=== PATIENT | female | born 1960 | race Caucasian/White ===

== ENCOUNTER → 2019-11-17 10:49 | Outpatient (BNVA) | payer MEDICARE, MEDICAID, SELFPAY | PROVIDERS: Family Provider Internal Medicine; PCP Internal Medicine; Visit Provider Nurse Practitioner Psychiatric/Mental Health | DX: F31.74 Bipolar disorder, in full remission, most recent episode manic (principal) | CPT/HCPCS: 99213 ==

== ENCOUNTER → 2020-03-14 07:36 | Outpatient (BNVA) | payer MEDICARE, MEDICAID, SELFPAY | PROVIDERS: Family Provider Internal Medicine; PCP Internal Medicine; Visit Provider Nurse Practitioner Psychiatric/Mental Health | DX: F31.74 Bipolar disorder, in full remission, most recent episode manic (principal) | CPT/HCPCS: 99213 ==

== ENCOUNTER → 2020-07-18 07:52 | Outpatient (BNVA) | payer MEDICARE, MEDICAID, SELFPAY | PROVIDERS: Family Provider Internal Medicine; PCP Internal Medicine; Visit Provider Nurse Practitioner Psychiatric/Mental Health | DX: F31.74 Bipolar disorder, in full remission, most recent episode manic (principal) | CPT/HCPCS: 99213 ==

== ENCOUNTER → 2020-11-14 07:41 | Outpatient (BNVA) | payer MEDICARE, MEDICAID, SELFPAY | PROVIDERS: Family Provider Internal Medicine; PCP Internal Medicine; Visit Provider Nurse Practitioner Psychiatric/Mental Health | DX: F31.74 Bipolar disorder, in full remission, most recent episode manic (principal) | CPT/HCPCS: 99213 ==

== ENCOUNTER → 2021-03-20 08:00 | Outpatient (BNVA) | payer MEDICARE, MEDICAID, SELFPAY | PROVIDERS: Family Provider Internal Medicine; PCP Internal Medicine; Visit Provider Nurse Practitioner Psychiatric/Mental Health | DX: F31.74 Bipolar disorder, in full remission, most recent episode manic (principal) | CPT/HCPCS: 99213 ==

== ENCOUNTER → 2021-07-17 07:21 | Outpatient (BNVA) | payer MEDICARE, MEDICAID, SELFPAY | PROVIDERS: Family Provider Internal Medicine; PCP Internal Medicine; Visit Provider Nurse Practitioner Psychiatric/Mental Health | DX: F31.74 Bipolar disorder, in full remission, most recent episode manic (principal) | CPT/HCPCS: 99214 ==

== ENCOUNTER → 2021-11-13 07:34 | Outpatient (BNVA) | payer MEDICARE, MEDICAID, SELFPAY | PROVIDERS: Family Provider Internal Medicine; PCP Internal Medicine; Visit Provider Nurse Practitioner Psychiatric/Mental Health | DX: F31.74 Bipolar disorder, in full remission, most recent episode manic (principal) | CPT/HCPCS: 99214 ==

== ENCOUNTER 2021-12-21 09:56 | Outpatient (CLI) | payer MEDICARE, MEDICAID, SELFPAY ==
--- NOTE | 2021-12-21 10:10 | MM_ITS ---
WS: [id number] SCREENING DIGITAL MAMMOGRAM WITH CAD HISTORY: SCREENING COMPARISON: 03/02/2019 and 03/26/2018 Bilateral CC and MLO views submitted. Computer aided detection analyzed. Breast composition: There are scattered areas of fibroglandular density. Numerous bilateral breast calcifications. There is a new cluster of calcifications with mild increase d soft tissue noted in the lateral LEFT breast near 2:00. Middle depth developing calcifications. MM/[place] [id number] IMPRESSION: BI-RADS: 0-Incomplete: Need additional imaging evaluation FOLLOW UP: Need Additional Imaging LEFT BREAST: Magnification views of suspicious calcification CC and MLO. Zeb Rodriguez
== END 2021-12-21 09:57 | disposition home or self-care (01) ==
PROVIDERS: Family Provider Internal Medicine; PCP Internal Medicine; Visit Provider Internal Medicine
DX: Z12.31 Encounter for screening mammogram for malignant neoplasm of breast (principal)
CPT/HCPCS: 77067

== ENCOUNTER 2021-12-31 11:37 | Outpatient (CLI) | payer MEDICARE, MEDICAID, SELFPAY ==
--- NOTE | 2021-12-31 11:57 | MM_ITS ---
WS: [id number] ADDITIONAL VIEWS LEFT MAMMOGRAM HISTORY: LT BREAST CALCIFICATIONS COMPARISON: 12/21/2021, 03/02/2019 and 08/26/2017 Magnification views LEFT breast in CC, MLO projections and true ML submitted. Small cluster of calcifications in the middle depth upper quadrant of the LEFT breast. These calcific ations are new since 2019. These are very vague and difficult to visualize. There are numerous additi onal calcifications within the LEFT breast which are stable. MM/[id number] IMPRESSION: BI-RADS: 3-Probably Benign FOLLOW UP: 6 Month Follow-up Recommend diagnostic mammogram in 6 months with magnification views of the new development LEFT breast calcifications.
== END 2021-12-31 11:38 | disposition home or self-care (01) ==
LOC: RADSHAW 11:55
PROVIDERS: PCP Internal Medicine; Visit Provider Internal Medicine
DX: R92.1 Mammographic calcification found on diagnostic imaging of breast (principal)
CPT/HCPCS: 77065

== ENCOUNTER → 2022-03-05 07:29 | Outpatient (BNVA) | payer MEDICARE, MEDICAID, SELFPAY | PROVIDERS: PCP Internal Medicine; Visit Provider Nurse Practitioner Psychiatric/Mental Health | DX: F31.74 Bipolar disorder, in full remission, most recent episode manic (principal) | CPT/HCPCS: 99214 ==

== ENCOUNTER → 2022-08-01 10:53 | Outpatient (BNVA) | payer MEDICARE, MEDICAID, SELFPAY | PROVIDERS: PCP Internal Medicine; Visit Provider Specialist | DX: M17.12 Unilateral primary osteoarthritis, left knee (principal) | CPT/HCPCS: 20610 ==

== ENCOUNTER 2022-09-28 17:59 | Emergency (ER) | payer MEDICARE, MEDICAID, SELFPAY ==
[2022-09-28 19:08] VITALS: BMI 44.0
[2022-09-28 19:11] VITALS: BP 148/77; PULSE 77; RESP 18; TEMP 38.7; O2SAT 93
--- NOTE | 2022-09-28 21:23 | XRR_ITS ---
PROCEDURE INFORMATION: Exam: XR Chest Exam date and time: 09/28/2022 11:52 PM Age: 62 years old Clinical indication: Cough and fever; Additional info: Cough fever TECHNIQUE: Imaging protocol: Radiologic exam of the chest. Views: 1 view. COMPARISON: CR XR chest 1V [id number] 02/18/2016 4:04 PM FINDINGS: Lungs: Unremarkable. No consolidation. Pleural spaces: Unremarkable. No pleural effusion. No pneumothorax. Heart/Mediastinum: Unremarkable. No cardiomegaly. Bones/joints: Moderate left primary glenohumeral osteoarthritis. Soft tissues: Examination is limited secondary to body habitus. XR/XR chest 1V portable [id number] IMPRESSION: No acute findings.
[2022-09-28 22:28] LABS: Influenza A by IFA negative (Negative); Influenza B by IFA negative (Negative)
[2022-09-28 22:29] LABS: SARS Covid-2 Antigen positive (Negative)
--- NOTE | 2022-09-28 23:10 | W.ED.FEVER ---
HPI - Fever General: Chief Complaint: Fever Stated Complaint: FEver Time Seen by Provider: 09/28/22 22:39 History of Present Illness: Patient is a 62-year-old female comes to the ED with upper respiratory symptoms. Symptoms started yesterday. She has a productive cough with green sputum, fevers, nasal congestion and drainage, chills and body aches. Denies any chest pain, shortness of breath, nausea or vomiting. Associated symptoms: Reports chills and nasal congestion; Deny abdominal pain, flank pain, chest pain, diarrhea, dysuria, headache(s), nausea or vomiting Review of Systems Const: Reports: fever(s), chills and body aches Eyes: Denies: change in vision or eye discomfort ENMT: Reports: nasal discharge and nasal congestion; Denies: throat pain or odynophagia Card: Denies: chest pain, palpitations, edema, swelling of feet/ankles, dyspnea on exertion or orthopnea Resp: Reports: productive cough and change in phlegm color (Green); Denies: dyspnea or non-productive cough GI: Denies: abdominal pain, nausea, vomiting, diarrhea, constipation or hematochezia : Denies: flank pain, dysuria or hematuria Musc: Denies: neck pain, back pain or extremity swelling Skin/Breast: Denies: rash or new lesions Neuro: Denies: headache(s), numbness in extremities or weakness in extremities PFSH ED PFSH: Medical History Bipolar disorder, in full remission, most recent episode manic Psychiatric care Social History Smoking and tobacco status: former smoker Quit status (tobacco): has quit using tobacco Year quit tobacco: 1984 Second hand smoke exposure: No Smoking risk assessment/counseling performed?: No Physical Exam Const: COMMON NORMALS: no acute distress, patient oriented x3, healthy appearing and alert GENERAL APPEARANCE: cooperative and comfortable HENMT: COMMON NORMALS: normocephalic HEAD & SCALP: normocephalic MOUTH: Normal oral and palatal mucosa present THROAT: posterior oropharynx normal and uvula midline Neck/C-Spine: COMMON NORMALS: supple GENERAL: Yes normal visual inspection Resp: COMMON NORMALS: normal respiratory effort, No retractions, No use of accessory muscles and clear to auscultation bilaterally AUSCULTATION: clear to auscultation bilaterally Cardio: COMMON NORMALS: regular rate, regular rhythm, S1 normal heart sound present, S2 normal heart sound present, No gallops present (Cardio), No clicks present (Cardio), No murmurs present (Cardio) and Peripheral pulses 2+ throughout RATE: regular rate RHYTHM: regular rhythm HEART SOUNDS: S1 normal heart sound present and S2 normal heart sound present PERIPHERAL PULSES: Peripheral pulses 2+ throughout GI: COMMON NORMALS: Normal to inspection, nondistended, normoactive bowel sounds present, Soft to palpation, non-tender and no masses PALPATION: Yes Soft to palpation : COMMON NORMALS: Yes no CVA tenderness BLADDER/KIDNEY EXAM: Yes no CVA tenderness Back/Pelvis: COMMON NORMALS: no CVA tenderness Neuro: COMMON NORMALS: patient oriented x3 SENSORIUM/ORIENTATION: Yes alert GAIT: Yes Normal gait present Skin: GENERAL SKIN EXAM: dry skin Course Vital Signs: Vital signs: Vital Signs Temperature 100.4 F H 09/28/22 23:24 Pulse Rate 71 09/28/22 23:24 Respiratory Rate 20 H 09/28/22 23:24 Blood Pressure 126/85 09/28/22 23:24 Pulse Oximetry 93 09/28/22 23:24 Oxygen Delivery Me thod 09/28/22 23:24 MDM - Fever Medical Decision Making Patient is a 62-year-old female comes to the ED with upper respiratory symptoms. Symptoms started yesterday. She has a productive cough with green sputum, fevers, nasal congestion and drainage, chills and body aches. Denies any chest pain, shortness of breath, nausea or vomiting. Patient has a fever of 101.7 but the rest of her vitals are stable. Lungs are clear to station bilaterally and the rest of exam is benign. Patient appears nontoxic in no acute distress or pain. Chest x-ray shows no acute findings. Influenza negative COVID was positive. He was given a dose of Tylenol here in the ED. I discussed the option of Paxlovid, but pt wanted a course of steroids for treatment. She was diagnosed with COVID-19 and discharged home with a prescription for Medrol Dosepak. Follow-up with PCP in the next week for reevaluation. Return to ED precautions given. Patient understood and agreed with plan Lab Data Radiology Impressions Chest X-Ray 09/28/22 21:23 IMPRESSION: No acute findings. Laboratory Results Influenza Type A Ag negative (Negative) 09/28/22 21:58 Influenza Type B Ag negative (Negative) 09/28/22 21:58 SARS-CoV-2 Ag (Rapid) positive (Negative) 09/28/22 21:58 Discharge Plan Discharge Patient Disposition: Home Clinical Impression: COVID-19 Condition: Stable Prescriptions: New methylprednisolone 4 mg tablets,dose pack See Rx Instructions .ROUTE .COMPLEX Qty: 21 0RF Rx Instructions: orally per package directions No Action levothyroxine [Synthroid] 150 mcg tablet 150 mcg PO DAILY cholecalciferol (vitamin D3) 4,000 unit capsule 4,000 unit PO DAILY atorvastatin 40 mg tablet 40 mg PO DAILY prednisone 20 mg tablet 20 mg PO DAILY 5 Days Qty: 5 0RF ziprasidone HCl [Geodon] 80 mg capsule 80 mg PO BID Qty: 180 2RF Rx Instructions: Take one capsule twice per day with food (meal/snack) trazodone 100 mg tablet 100 mg PO .QHS PRN (Reason: insomnia) Qty: 90 2RF Rx Instructions: Take one tablet at bedtime as needed for sleep Discharge Orders: Discharge ED (Routine); Ordered 09/28/22 Ordered By: Narendra Pang Referrals: Bandar De La Torre DO [Primary Care Provider] - Discharge Diet: Regular Discharge Activity: Increase activity as tolerated Patient Instructions: COVID-19 (Coronavirus Disease 2019) (ED) Activity Restrictions/Additional Instructions: Follow-up with medical provider as directed in the next 5 to 7 days for reevaluation. Take medications as prescribed. Make sure you drink plenty of fluids and stay hydrated. Take [id number] Tylenol or Motrin for fevers. Return to the ER or your medical provider if condition worsens. Please read and understand discharge instructions. Thank you for choosing [facility] for your healthcare needs today. Please realize this is an emergency room and that we are providing you with a medical screening exam and this may not be complete and all inclusive of all the testing and or work up that you may need to determine your ailment or severity of your illness. It is very important that you follow up as instructed or that you return to the Emergency Department should you have concerns or if your condition changes or worsens in any way. Coding Level of Care Code ED Software Qa Manager for Chg Fwd Exam Comprehensive
[2022-09-28 23:24] VITALS: BP 126/85; PULSE 71; RESP 20; TEMP 38; O2SAT 93
[2022-09-28] MEDS: acetaminophen 500 mg Tablet 1000 MG PO (23:25)
[2022-09-28] MEDS: predniSONE 20 mg Tablet 60 MG PO (23:51)
== END 2022-09-28 23:50 | disposition home or self-care (01) ==
PROVIDERS: Emergency Medicine; Emergency Provider Physician Assistant; PCP Internal Medicine
DX: U07.1 COVID-19 (principal); Z87.891 Personal history of nicotine dependence
CPT/HCPCS: 71045; 87426; 87804; 99284; J7512

== ENCOUNTER 2023-01-01 10:01 | Outpatient (CLI) | payer MEDICARE, MEDICAID, SELFPAY ==
--- NOTE | 2023-01-01 10:11 | MM_ITS ---
WS: [id number] DIAGNOSTIC BILATERAL DIGITAL BREAST TOMOSYNTHESIS MAMMOGRAPHY WITH CAD HISTORY: 6MFU CALCS COMPARISON: 12/31/2021, 12/21/2021 and 03/02/2019 TECHNIQUE: Bilateral craniocaudad, mediolateral oblique, and mediolateral views are submitted with to [email or web address] and SM. Magnification views LEFT CC and MLO. Computer aided detection utilized. Breast composition: There are scattered areas of fibroglandular density. Bilateral breast calcificati ons are reidentified. Cluster of calcifications in the LEFT breast for which follow-up was recommende d are now more coarse. These calcifications appear more similar to the remaining scattered calcificat ions throughout the breast. There are no suspicious groups of calcifications. MM/[place] [id number] IMPRESSION: BI-RADS: 2-Benign FOLLOW UP: 1 Year Follow-up
== END 2023-01-01 10:02 | disposition home or self-care (01) ==
LOC: RAD 10:05
PROVIDERS: PCP Internal Medicine; Visit Provider Internal Medicine
DX: R92.1 Mammographic calcification found on diagnostic imaging of breast (principal)
CPT/HCPCS: 77062; G0279

== ENCOUNTER → 2023-01-07 09:46 | Outpatient (BNVA) | payer MEDICARE, MEDICAID, SELFPAY | PROVIDERS: PCP Internal Medicine; Visit Provider Podiatrist Foot & Ankle Surgery | DX: M21.41 Flat foot [pes planus] (acquired), right foot (principal); M21.42 Flat foot [pes planus] (acquired), left foot; M21.611 Bunion of right foot; M21.612 Bunion of left foot; M20.41 Other hammer toe(s) (acquired), right foot; M20.42 Other hammer toe(s) (acquired), left foot; M21.621 Bunionette of right foot; M21.622 Bunionette of left foot; E11.42 Type 2 diabetes mellitus with diabetic polyneuropathy | CPT/HCPCS: 99204 ==

== ENCOUNTER → 2023-01-30 09:27 | Outpatient (BNVA) | payer MEDICARE, MEDICAID, SELFPAY | PROVIDERS: PCP Internal Medicine; Visit Provider Specialist | DX: M17.12 Unilateral primary osteoarthritis, left knee (principal) | CPT/HCPCS: 20610; J7318 ==

== ENCOUNTER → 2023-08-07 09:43 | Outpatient (BNVA) | payer MEDICARE, MEDICAID, SELFPAY | PROVIDERS: PCP Internal Medicine; Visit Provider Specialist | DX: M17.12 Unilateral primary osteoarthritis, left knee (principal) | CPT/HCPCS: 20610; J7325 ==

== ENCOUNTER → 2024-02-20 09:09 | Outpatient (BNVA) | payer MEDICARE, MEDICAID, SELFPAY | PROVIDERS: PCP Internal Medicine; Visit Provider Specialist | DX: M17.12 Unilateral primary osteoarthritis, left knee (principal) | CPT/HCPCS: 20610; J7325 ==

== ENCOUNTER → 2024-09-17 09:26 | Outpatient (BNVA) | payer MEDICARE, MEDICAID, SELFPAY | PROVIDERS: PCP Internal Medicine; Visit Provider Specialist | DX: M17.12 Unilateral primary osteoarthritis, left knee (principal); Z71.89 Other specified counseling | CPT/HCPCS: 20610 ==

== ENCOUNTER 2024-09-23 01:38 | Emergency (ER) | payer MEDICARE, MEDICAID, SELFPAY ==
[2024-09-23 01:45] VITALS: BP 181/108; PULSE 82; RESP 16; TEMP 36.8; O2SAT 95; BMI 44.5
--- NOTE | 2024-09-23 01:47 | XRR_ITS ---
PROCEDURE INFORMATION: Exam: XR Chest Exam date and time: 09/23/2024 1:54 AM Age: 64 years old Clinical indication: Cough TECHNIQUE: Imaging protocol: Radiologic exam of the chest. Views: 1 view. COMPARISON: CR XR chest 1V portable [id number] 09/28/2022 11:52 PM FINDINGS: Lungs: Opacity projecting over the right peripheral lower lobe. Pleural spaces: No pleural effusion. No pneumothorax. Heart/Mediastinum: No cardiomegaly. Bones/joints: No acute findings. XR/XR chest 1V portable [id number] IMPRESSION: Superimposed shadow versus acute infiltrate at the right lower lobe. Consider repeat evaluation with PA and lateral views or CT.
[2024-09-23] MEDS: ondansetron 4 MG Tablet PO (01:49)
[2024-09-23] MEDS: guaiFENesin-codeine UDC 10 mL PO (01:49)
--- NOTE | 2024-09-23 02:07 | ED_ITS ---
HPI - URI/Sore Throat General: Chief Complaint: Upper Respiratory Infection Stated Complaint: cough Time Seen by Provider: 09/23/24 01:41 History of Present Illness: 64-year-old female who presents emergenc y room by ambulance with cough. Been going on for about a week now. She said today she had a couple of episodes where she had vomiting after she coughed. No fevers. No real shortness of breath. Related Data Home Medications Medication Instructions Recorded Confirmed atorvastatin 40 mg tablet 40 mg PO DAILY 11/16/19 09/17/24 cholecalciferol (vitamin D3) 50 100 mcg PO DAILY 02/13/23 09/17/24 mcg (2,000 unit) capsule levothyroxine 150 mcg tablet 137 mcg PO DAILY 09/17/24 09/17/24 (Synthroid) Previous Rx's Medication Instructions Recorded Custom Sole Supports #1 ea 01/07/23 Repair Top Coat of Orthotic #1 ea 01/07/23 Inserts Bilaterally trazodone 100 mg tablet 100 mg PO .QHS PRN insomnia #90 03/16/24 tabs ziprasidone HCl 80 mg capsule 80 mg PO BID #180 caps 03/16/24 (Geodon) azithromycin 250 mg tablet See Rx Instructions PO .COMPLEX #6 09/23/24 (Zithromax Z-Jose) tabs benzonatate 200 mg capsule 200 mg PO TID PRN cough #30 caps 09/23/24 dexamethasone 6 mg tablet 6 mg PO DAILY 5 days #5 tabs 09/23/24 ondansetron 8 mg disintegrating 8 mg PO Q6H #14 tabs 09/23/24 tablet Allergies Allergy/AdvReac Type Severity Reaction Status Date / Time atorvastatin [From Lipitor] Allergy unknown Verified 09/17/24 10:05 chlorpheniramine Allergy Unknown Verified 09/17/24 10:05 egg Allergy Unknown Verified 09/17/24 10:05 Influenza Virus Vaccines Allergy Unknown Verified 09/17/24 10:05 latex Allergy Unknown Verified 09/17/24 10:05 levofloxacin [From Levaquin] Allergy unknown Verified 09/17/24 10:05 metoprolol Allergy unknown Verified 09/17/24 10:05 potato Allergy Unknown Verified 09/17/24 10:05 pseudoephedrine Allergy unknown Verified 09/17/24 10:05 radish Allergy Unknown Verified 09/17/24 10:05 red dye Allergy unknown Verified 09/17/24 10:05 Sulfa (Sulfonamide Allergy Unknown Verified 09/17/24 10:05 Antibiotics) later with the powder Allergy Severe Rash Uncoded 09/17/24 10:05 Review of Systems Narrative: Constitutional symptoms: Negative except as documented in HPI. Skin symptoms: Negative except as documented in HPI. Eye symptoms: Negative except as documented in HPI. ENMT symptoms: Negative except as documented in HPI. Respiratory symptoms: Negative except as documented in HPI. Cardiovascular symptoms: Negative except as documented in HPI. Gastrointestinal symptoms: Negative except as documented in HPI. Genitourinary symptoms: Negative except as documented in HPI. Musculoskeletal symptoms: Negative except as documented in HPI. Neurologic symptoms: Negative except as documented in HPI. Psychiatric symptoms: Negative except as documented in HPI. Endocrine symptoms: Negative except as documented in HPI. PFSH ED PFSH: Medical History Psychiatric care Bipolar disorder, in full remission, most recent episode manic Social History Smoking and tobacco/nicotine status: unknown if used tobacco/nicotine Quit status (tobacco/nicotine): has quit using Year quit tobacco: 1984 Second hand smoke exposure: No Physical Exam Narrative: EXAM NARRATIVE: General: Alert, no acute distress. Skin: Warm, dry. Head: Normocephalic, atraumatic. Neck: Supple, trachea midline. Eye: Extraocular movements are intact. Ears, nose, mouth and throat: mucosa moist. Cardiovascular: Regular, Normal peripheral perfusion. Respiratory: Lungs are clear to auscultation, respirations are non-labored, breath sounds are equal, Symmetrical chest wall expansion. Gastrointestinal: Soft, Nontender, Non distended Musculoskeletal: Normal ROM, no deformity. Neurological: Alert and oriented, No focal neurological deficit observed. Psychiatric: Cooperative, appropriate mood & affect. Course Vital Signs: Vital signs: Vital Signs Temperature 98.2 F 09/23/24 01:45 Pulse Rate 82 09/23/24 01:45 Respiratory Rate 16 09/23/24 01:45 Blood Pressure 181/108 09/23/24 01:45 Pulse Oximetry 95 09/23/24 01:45 Oxygen Delivery Me thod Room Air 09/23/24 01:45 MDM - URI/Sore Throat Medical Decision Making Chest x-ray: No acute process. No infiltrate. No pneumothorax. Films were in terpreted by myself the emergency room provider and pending final radiology review. Assessment and plan: Upper respiratory infection Cough Posttussive emesis ? Codeine and Zofran in the emergency room ?IM Decadron and IM Rocephin. - Discharged home - Discussed plan with patient. Answered any questions. - Evaluation and treatment of this problem were appropriate in the emergency setting. XR interpretation done by ED provider, pending radiology final review Discharge Plan Discharge Patient Disposition: Home Clinical Impression: Upper respiratory infection Condition: Stable Prescriptions: New benzonatate 200 mg capsule 200 mg PO TID PRN (Reason: cough) Qty: 30 0RF azithromycin [Zithromax Z-Jose] 250 mg tablet See Rx Instructions .ROUTE .COMPLEX Qty: 6 0RF Rx Instructions: For 250 mg dose pack: take 500 mg today (day 1), then 250 mg for 4 days (days 2-5) dexamethasone 6 mg tablet 6 mg PO DAILY 5 Days Qty: 5 0RF ondansetron 8 mg tablet,disintegrating 8 mg PO Q6H Qty: 14 0RF Rx Instructions: Take 1/2-1 tab every 6 hours as needed for nausea and vomiting No Action atorvastatin 40 mg tablet 40 mg PO DAILY levothyroxine [Synthroid] 150 mcg tablet 137 mcg PO DAILY cholecalciferol (vitamin D3) 50 mcg (2,000 unit) capsule 100 mcg PO DAILY (DME) Custom Sole Supports See Rx Instructions .Route .MEDSUPPLY Qty: 1 0RF Rx Instructions: Please Prior Auth (DME) Repair Top Coat of Orthotic Inserts Bilaterally See Rx Instructions .Route .MEDSUPPLY Qty: 1 0RF Rx Instructions: As directed [facility] trazodone 100 mg tablet 100 mg PO .QHS PRN (Reason: insomnia) Qty: 90 2RF Rx Instructions: Take one tablet at bedtime as needed for sleep ziprasidone HCl [Geodon] 80 mg capsule 80 mg PO BID Qty: 180 2RF Rx Instructions: Take one capsule twice per day with food (meal/snack) Discharge Orders: Discharge ED (Routine); Ordered 09/23/24 Ordered By: Yolanda Mcintosh Referrals: Bandar De La Torre DO [Primary Care Provider] - Discharge Diet: Usual diet Discharge Activity: Increase activity as tolerated Patient Instructions: Upper Respiratory Infection (ED), Opioid Safety, Pain Management Activity Restrictions/Additional Instructions: Thank you for choosing [facility] for your healthcare needs today. Please realize this is an emergency room and that we are providing you with a medical screening exam and this may not be complete and all inclusive of all the testing and or work up that you may need to determine your ailment or severity of your illness. You have been screened and evaluated and felt safe for discharge. Health conditions do change or evolve sometimes and as such it is important that you follow up with your Primary Doctor to be re checked, 3-5 days is a general good time frame for follow up. You are always welcome to return to the ED for re assessment if your symptoms are worsening or you have new concerns Coding Level of Care Code ED Metal Loader for Jen Feliciano
[2024-09-23] MEDS: dexamethasone 10 mg/mL INJ IM (02:26)
[2024-09-23] MEDS: cefTRIAXone 1,000 MG in water for injection-sterile 2.1 ML 2.1 MG IM (02:26)
[2024-09-23 05:58] VITALS: BP 160/87; PULSE 74; O2SAT 91
== END 2024-09-23 06:00 | disposition home or self-care (01) ==
PROVIDERS: Emergency Provider Emergency Medicine; PCP Internal Medicine
DX: J06.9 Acute upper respiratory infection, unspecified (principal); Z87.891 Personal history of nicotine dependence
CPT/HCPCS: 71045; 96372; 99284; J0696; J1100; Q0162

== ENCOUNTER → 2024-12-09 14:04 | Outpatient (BNVA) | payer MEDICAID, MEDICARE, SELFPAY | PROVIDERS: PCP Internal Medicine; Visit Provider Podiatrist Foot & Ankle Surgery | DX: M79.671 Pain in right foot (principal); M79.672 Pain in left foot; M20.11 Hallux valgus (acquired), right foot; M20.12 Hallux valgus (acquired), left foot | CPT/HCPCS: 73630; 99203 ==

== ENCOUNTER 2025-04-01 09:23 | Outpatient (CLI) | payer OTHER, MEDICAID, SELFPAY ==
--- NOTE | 2025-04-01 09:29 | MM_ITS ---
WS: [id number] BILATERAL SCREENING DIGITAL TOMOSYNTHESIS MAMMOGRAM WITH CAD HISTORY: SCREENING COMPARISON: 01/01/2023, 12/31/2021 Bilateral CC and MLO views with tomosynthesis and synthetic mammography submitted. Computer aided detection analyzed. Breast composition: The breasts are almost entirely fatty. No suspicious masses, microcalcifications or architectural distortion. Numerous bilateral benign- appearing calcifications within each breast. MM/MM scr BI tomosynthesis [id number] IMPRESSION: BI-RADS: 2 - Benign. FOLLOW UP: 1 Year Follow-up
== END 2025-04-01 09:24 | disposition home or self-care (01) ==
LOC: RAD 09:26
PROVIDERS: PCP Family Medicine; Visit Provider Family Medicine
DX: Z12.31 Encounter for screening mammogram for malignant neoplasm of breast (principal); R92.313 Mammographic fatty tissue density, bilateral breasts; R92.1 Mammographic calcification found on diagnostic imaging of breast
CPT/HCPCS: 77063; 77067

== ENCOUNTER → 2025-04-08 08:30 | Outpatient (BNVA) | payer OTHER, MEDICAID, SELFPAY | PROVIDERS: PCP Family Medicine; Visit Provider Specialist | DX: M17.12 Unilateral primary osteoarthritis, left knee (principal); Z71.89 Other specified counseling | CPT/HCPCS: 20610; J7325 ==

== ENCOUNTER → 2025-09-28 11:39 | Outpatient (BNVA) | payer OTHER, MEDICAID, SELFPAY | PROVIDERS: PCP Family Medicine; Visit Provider Nurse Practitioner Psychiatric/Mental Health | DX: Z79.899 Other long term (current) drug therapy (principal) | CPT/HCPCS: 80061 ==

== ENCOUNTER 2025-10-28 20:04 | Emergency (ER) | payer MEDICARE, MEDICAID, SELFPAY ==
[2025-10-28 20:11] VITALS: BP 161/79; PULSE 92; RESP 18; TEMP 37.2; O2SAT 96; BMI 45.5
--- OUTSIDE RECORDS SUMMARY | 2025-10-28 20:19 | XMS_ITS | Clinical Summary ---
Author Organization [facility] Address [address] Attn: Epic Prelude ADT YOBANY CELESTIN [id number] Care Team Providers Care Tug Boat Engineer Name Role Phone Bandar De La Torre DO Primary Care Provide r Allergies Active Allergy Reactions Criticality Noted Date Comments Egg Nausea and Vomiting Low 05/18/2015 Latex Hives High 05/18/2015 Levofloxacin Other (See Comments) 05/18/2015 Jaw pain Medications multivitamin (DAILY-[place]) tablet Take 1 Tab by mouth daily. 05/18/2015 Active cholecalciferol , Vitamin D3, 50 mcg (2,000 unit) Tablet Take by mouth. 05/18/2015 Active lamoTRIgine (LaMICtal) 150 mg tablet Take 150 mg by mouth daily. 05/18/2015 Active naproxen (NAPROSYN) 500 mg tablet Take 500 mg by mouth 2 times daily with meals. 05/18/2015 Active traZODone (DESYREL) 100 mg tablet Take 100 mg by mouth daily at bedtime. 05/18/2015 Active lovastatin (MEVACOR) 20 mg tablet Take 20 mg by mouth daily with supper. 05/18/2015 Active temazepam (RESTORIL) 15 mg capsule Take 15 mg by mouth nightly as needed for Insomnia. 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 05/18/2015 Active calcium citrate-vitamin d3 (CITRACAL D) 315 mg-5 mcg (200 unit) Tablet Take by mouth daily. 05/18/2015 Active cyclobenzaprine (FLEXERIL) 10 mg tablet Take 10 mg by mouth every 8 hours. 05/18/2015 Active Family History Medical History Relation Name Comments Breast Cancer Neg Hx Negative Respo nse- See media tab Ovarian Cancer Neg Hx Relation Name Status Comments Father Alive Mother Alive Social History Tobacco Use Types Packs/Day Years Used Date Smoking Tobacco: Former Alcohol Use Standard Drinks/Week Comments No 0 (1 standard drink = 0.6 oz pur e alcohol) Comments Unknown Sex and Gender Information Value Date Recorded Sex Assigned at Not on file Legal Sex Female 5:01 AM SAP BUSINESS INTELLIGENCE CONSULTANT Gender Identity Not on file Sexual Orientation Not on file Last Filed Vital Signs Vital Sign Reading Time Taken Comments Blood Pressure 130/84 11/21/2015 9:54 AM SAP BUSINESS INTELLIGENCE CONSULTANT Pulse 75 11/21/2015 9:54 AM SAP BUSINESS INTELLIGENCE CONSULTANT Temperature - - Respiratory Rate - - Oxygen Saturation - - Inhaled Oxygen Concentration - - Weight 112.5 kg (248 lb) 11/21/2015 9:54 AM SAP BUSINESS INTELLIGENCE CONSULTANT Height 170.2 cm (5' 7 ) 11/21/2015 9:54 AM SAP BUSINESS INTELLIGENCE CONSULTANT Body Mass Index 38.84 11/21/2015 9:54 AM SAP BUSINESS INTELLIGENCE CONSULTANT Plan of Treatment Health Maintenance Due Date Last Done Comments DTAP/TDAP/TD VACCINES (1 - Tdap) 1978 COLORECTAL SCREENING 2004 Colorectal Cancer Screening 2004 FIT-DNA Q 3 years 2004 FIT/FOBT Q 1 year 2004 Flex Sig/CT Colonography Q 5 years 2004 PNEUMOCOCCAL VACCINE 50+ YEA RS (1 of 1 - PCV) 2009 ZOSTER VACCINE (1 of 2) 2009 BREAST CANCER SCREENING 03/02/2020 03/02/20 19, 03/26/2018, 09/22/2017, Additional history exists OSTEOPOROSIS SCREENING 2024 INFLUENZA VACCINE (#1) 2025 RSV VACCINE (60+ or ) (1 - 1-dose 75+ series) 2034 Procedures Procedure Name Priority Date/Time Associated Diagnosis Comments MAMMO 3D BHAKTI DIAGNOSTIC BILAT W OR WO CAD Routine 03/02/2019 12:15 PM CDT Abnormal mammogram from Last 3 Months or Most Recently Relevant to Health Maintenance Results * (ABNORMAL) MAMMO DIAG BILAT 3D BHAKTI W OR WO CAD (03/02/2019 12:15 PM CDT) Anatomical Region Laterality Modality Breast Bilateral Other Narrative 03/02/2019 1:58 PM CDT MAMMO DIAG BILAT 3D BHAKTI W OR WO CAD INDICATION FOR EXAMINATION: See Diagnosis COMPARISONS: Mammogram dated 03/26/2018, 08/26/2017, 09/22/2017, 08/14/2016, 06/29/2015, 05/25/2014, 05/24/2013, 03/11/2012, 01/27/2006. BREAST COMPOSITION: Scattered areas of fibroglandular density. FINDINGS: 3D MLO and CC digital tomosynthesis images were acquired and synthesized 2D images (C view) were generated. This digital mammogram was also analyzed by the Computer Aided Detection System CAD). Follow-up for probably benign right breast abnormality. The previously identified tiny focal asymmetry within the lateral right breast at mid to posterior depth appears unchanged. The remainder of the right breast fibroglandular pattern is stable. The left breast fibroglandular pattern is stable; no suspicious abnormality is identified. ASSESSMENT: Probably benign. BI-RADS 3. RECOMMENDATIONS: Bilateral diagnostic mammogram in one year. [id number] Procedure Note Cordell Navas MD - 04/02/2021 MAMMO DIAG BILAT 3D BHAKTI W OR WO CAD INDICATION FOR EXAMINATION: See Diagnosis COMPARISONS: Mammogram dated 03/26/2018, 08/26/2017, 09/22/2017, 08/14/2016, 06/29/2015, 05/25/2014, 05/24/2013, 03/11/2012, 01/27/2006. BREAST COMPOSITION: Scattered areas of fibroglandular density. FINDINGS: 3D MLO and CC digital tomosynthesis images were acquired and synthesized 2D images (C view) were generated. This digital mammogram was also analyzed by the Computer Aided Detection System CAD). Follow-up for probably benign right breast abnormality. The previously identified tiny focal asymmetry within the lateral right breast at mid to posterior depth appears unchanged. The remainder of the right breast fibroglandular pattern is stable. The left breast fibroglandular pattern is stable; no suspicious abnormality is identified. ASSESSMENT: Probably benign. BI-RADS 3. RECOMMENDATIONS: Bilateral diagnostic mammogram in one year. [id number] Bandar De La Torre DO MAMMO ORDERABLES Martita l Result from Last 3 Months or Most Recently Relevant to Health Maintenance Insurance MEDICAID [facility] [place] [facility] [id number] Care Teams Tug Boat Engineer Relationship Specialty Start Date End Date Bandar De La Torre DO [address] [facility] [address] [place] [address] PCP - General Internal Medicine 09/03/17
--- OUTSIDE RECORDS SUMMARY | 2025-10-28 20:19 | XMS_ITS | Encounter Summary ---
Author Organization [facility] Address [address] [place] [address] Care Team Providers Care Chief Merchandising Officer Name Role Phone Bandar De La Torre DO Primary Care Provide r Encounter Details Date Type Department Care Team (Late st Contact Info) Description 05/04/2014 Ancillary Orders [facility] Pre-Registration [place] CALL TO MAKE APPOINTMENT ONLY [address] [place] [address] Dora Lagunas MD [address] [place] [address] Social History Tobacco Use Types Packs/Day Years Used Date Smoking Tobacco: Never Assessed Comments Unknown Sex and Gender Information Value Date Recorded Sex Assigned at Not on file Legal Sex Female 9:07 AM CHILD DAY CARE PROVIDER Gender Identity Not on file Sexual Orientation Not on file Occupation Industry Job Start Date Job End Date Not on file Not on file Not on file Not on file documented as of this encounter Plan of Treatment Not on file documented as of this encounter Visit Diagnoses Not on filedocumented in this encounter Care Teams Chief Merchandising Officer Relationship Specialty Start Date End Date Bandar De La Torre DO [address] [facility] [place] [address] PCP - General Internal Medicine 09/03/17 documented as of this encounter
--- OUTSIDE RECORDS SUMMARY | 2025-10-28 20:19 | XMS_ITS | Encounter Summary ---
Author Organization [facility] Address [address] [place] [address] Care Team Providers Care Brim Curler Name Role Phone Bandar De La Torre DO Primary Care Provide r Reason for Referral * Outpatient Services (Routine) - Closed Specialty Diagnoses / Procedures Referred By Jamaal ruiz Referred To Contact Radiology Diagnoses Inconclusive mammogram Procedures MAMMO BREAST US RIGHT LTD Bandar De La Torre DO [address] [facility] [address] [place] [address] Phone: tel: fax: [facility] [address] [facility] [address] [place] [address] Phone: tel: fax: Referral ID Status Reason Start Date Expiration Date Visits Requested Visits Authorized [id number] Closed Performing Department To Schedule (SGF) 08/28/2017 09/28/2018 1 1 Encounter Details Date Type Department Care Team (Late st Contact Info) Description 08/28/2017 Ancillary Orders [facility] [address] [address] Bandar De La Torre DO [address] [facility] [address] [place] [address] Inconclusive mammogram Social History Tobacco Use Types Packs/Day Years Used Date Smoking Tobacco: Former Alcohol Use Standard Drinks/Week Comments No 0 (1 standard drink = 0.6 oz pur e alcohol) Comments Unknown Sex and Gender Information Value Date Recorded Sex Assigned at Not on file Legal Sex Female 9:07 AM RADIATION ONCOLOGY NURSE Gender Identity Not on file Sexual Orientation Not on file Occupation Industry Job Start Date Job End Date Not on file Not on file Not on file Not on file documented as of this encounter Plan of Treatment Not on file documented as of this encounter Results * (ABNORMAL) MAMMO BREAST US RIGHT LTD (09/22/2017 3:15 PM RADIATION ONCOLOGY NURSE) Anatomical Region Laterality Modality Right Ultrasound 09/22/2017 3:15 PM RADIATION ONCOLOGY NURSE Impressions 09/23/2017 9:14 AM RADIATION ONCOLOGY NURSE : I would recommend follow-up right diagnostic mammogram in 6 months time. Patient received a result/recommendation letter. [id number] Narrative 09/23/2017 9:14 AM RADIATION ONCOLOGY NURSE RIGHT ADDITIONAL VIEWS AND ULTRASOUND 09/22/2017 The patient had a screening on 08/26/2017 and a tiny nodule was identified posteriorly on the right at about the 8 to 9:00 position. Additional views show a tiny low density vague 4 mm nodule 12 cm from the nipple centered at about the 9:00 position. RIGHT BREAST ULTRASOUND: The right breast was extensively scanned with both transducers. We see a benign-appearing lymph node at the 9-14 position which corresponds with a low-lying axillary lymph node which is stable. No discrete or suspicious finding is seen sonographically to correspond with the tiny nodule seen mammographically. Comparison is made with multiple prior exams going back to 09/06/2004. I feel that the area is quite benign-appearing and given the benign appearance mammographically I would simply recommend a short interval follow-up in 6 months. After the additional views I visited with the patient and explained the finding and recommendation. The patient indicated her understanding. The prior exam from [facility] dated 10/12/2012 is not available today for comparison. The patient was given a verbal and written report. Bandar De La Torre DO MAMMO ORDERABLES Martita l Result documented in this encounter Visit Diagnoses Diagnosis Inconclusive mammogram Inconclusive mammogram documented in this encounter Care Teams Brim Curler Relationship Specialty Start Date End Date Bandar De La Torre DO [address] [facility] [address] [place] [address] PCP - General Internal Medicine 09/03/17 documented as of this encounter
--- OUTSIDE RECORDS SUMMARY | 2025-10-28 20:19 | XMS_ITS | Encounter Summary ---
Author Organization [facility] Address [address] [place] [address] Care Team Providers Care Stores Assistant Name Role Phone Bandar De La Torre DO Primary Care Provide r Reason for Referral * Outpatient Services (Routine) - Closed Specialty Diagnoses / Procedures Referred By Contmeng ruiz Referred To Contact Diagnoses Other (abnormal) findings on radiological examination of breast Procedures MAMMO BREAST US LT Dora Lagunas MD [address] [place] [address] Phone: tel: fax: Referral ID Status Reason Start Date Expiration Date Visits Re quested Visits Authorized [id number] Closed 11/04/2012 11/04/2013 1 1 ATTENDANT * Outpatient Services (Routine) - Closed Specialty Diagnoses / Procedures Referred By Jamaal ruiz Referred To Contact Diagnoses Other (abnormal) findings on radiological examination of breast Procedures MAMMO DIGITAL DIAG UNI LEFT Dora Lagunas MD [address] [place] [address] Phone: tel: fax: Referral ID Status Reason Start Date Expiration Date Visits Re quested Visits Authorized [id number] Closed 11/04/2012 11/04/2013 1 1 ATTENDANT Encounter Details Date Type Department Care Team (Late st Contact Info) Description 11/04/2012 Ancillary Orders [facility] [address] [place] [address] Dora Lagunas MD [address] [place] [address] Other (abnormal) findings on radiological examination of breast Social History Tobacco Use Types Packs/Day Years Used Date Smoking Tobacco: Never Assessed Comments Unknown Sex and Gender Information Value Date Recorded Sex Assigned at Not on file Legal Sex Female 9:07 AM PARK ATTENDANT Gender Identity Not on file Sexual Orientation Not on file documented as of this encounter Plan of Treatment Not on file documented as of this encounter Results * (ABNORMAL) MAMMO BREAST US LT (11/19/2012 11:33 AM PARK ATTENDANT) Anatomical Region Laterality Modality Breast Left Ultrasound 11/19/2012 11:1 8 AM PARK ATTENDANT Impressions 11/20/2012 9:10 AM PARK ATTENDANT IMPRESSION: Review of multiple prior outside studies as well as today's additional views demonstrates a focal grouping of calcifications in the upper outer quadrant. Currently these calcifications favor a probably benign process and I would continue to recommend observation. There is no associated soft tissue mass with these calcifications. I would recommend that the patient have a bilateral exam in 6 months. That study should include additional magnification views on the left to assess stability. Patient received the result and recommendation letter. Alok 1205 PM - uploaded from [employer] - Narrative 11/20/2012 9:10 AM PARK ATTENDANT REASON FOR EXAM: The patient was referred to our facility for a second opinion regarding findings in the left breast. IMAGING PERFORMED: Left lateral projection and magnification views in the CC and lateral projection. COMPARISON(S): 09/06/2004, 01/27/2006, 04/18/2008, 05/29/2010, 03/11/2012, 04/01/2012, 10/12/2012. TISSUE COMPOSITION: Average, scattered fibroglandular densities. FAMILY HX.-BREAST Ca: Negative. MAMMOGRAPHIC FINDINGS: LEFT BREAST: On the study of 03/11/2012, the patient was noted to have a small cluster of calcifications in the upper outer quadrant. These are relatively large, coarse and rounded in appearance and would favor a probably benign process. These were observed for stability and on the study of 10/12/2012 a few additional calcifications formed posterior to the initial cluster. All of the calcifications are very similar in appearance. There is no appreciable underlying mass in this vicinity, but further evaluation sonographically is recommended as this does represent an interval change. This digital mammogram was also analyzed by the Computer Aided Detection System (CAD), R2 ImageChecker, Version 8.3. LEFT BREAST ULTRASOUND: Sonographic evaluation was carried out in the left upper outer quadrant and there were no cystic or solid masses identified. Procedure Note Hilda Rosales MD - 11/20/2012 REASON FOR EXAM: The patient was referred to our facility for a second opinion regarding findings in the left breast. IMAGING PERFORMED: Left lateral projection and magnification views in the CC and lateral projection. COMPARISON(S): 09/06/2004, 01/27/2006, 04/18/2008, 05/29/2010, 03/11/2012, 04/01/2012, 10/12/2012. TISSUE COMPOSITION: Average, scattered fibroglandular densities. FAMILY HX.-BREAST Ca: Negative. MAMMOGRAPHIC FINDINGS: LEFT BREAST: On the study of 03/11/2012, the patient was noted to have a small cluster of calcifications in the upper outer quadrant. These are relatively large, coarse and rounded in appearance and would favor a probably benign process. These were observed for stability and on the study of 10/12/2012 a few additional calcifications formed posterior to the initial cluster. All of the calcifications are very similar in appearance. There is no appreciable underlying mass in this vicinity, but further evaluation sonographically is recommended as this does represent an interval change. This digital mammogram was also analyzed by the Computer Aided Detection System (CAD), R2 ImageChecker, Version 8.3. LEFT BREAST ULTRASOUND: Sonographic evaluation was carried out in the left upper outer quadrant and there were no cystic or solid masses identified. IMPRESSION IMPRESSION: Review of multiple prior outside studies as well as today's additional views demonstrates a focal grouping of calcifications in the upper outer quadrant. Currently these calcifications favor a probably benign process and I would continue to recommend observation. There is no associated soft tissue mass with these calcifications. I would recommend that the patient have a bilateral exam in 6 months. That study should include additional magnification views on the left to assess stability. Patient received the result and recommendation letter. Alok 1205 PM - uploaded from [employer] - us Dora Lagunas MD MAMMO ORDERABLES Final Res ult * (ABNORMAL) MAMMO DIGITAL DIAG UNI LEFT (11/19/2012 11:12 AM PARK ATTENDANT) Anatomical Region Laterality Modality Breast Left Mammography 11/19/2012 9:49 AM PARK ATTENDANT Impressions 11/20/2012 9:10 AM PARK ATTENDANT IMPRESSION: Review of multiple prior outside studies as well as today's additional views demonstrates a focal grouping of calcifications in the upper outer quadrant. Currently these calcifications favor a probably benign process and I would continue to recommend observation. There is no associated soft tissue mass with these calcifications. I would recommend that the patient have a bilateral exam in 6 months. That study should include additional magnification views on the left to assess stability. Patient received the result and recommendation letter. MARISSA/jose martin 1205 PM - uploaded from [employer] - Narrative 11/20/2012 9:10 AM PARK ATTENDANT REASON FOR EXAM: The patient was referred to our facility for a second opinion regarding findings in the left breast. IMAGING PERFORMED: Left lateral projection and magnification views in the CC and lateral projection. COMPARISON(S): 09/06/2004, 01/27/2006, 04/18/2008, 05/29/2010, 03/11/2012, 04/01/2012, 10/12/2012. TISSUE COMPOSITION: Average, scattered fibroglandular densities. FAMILY HX.-BREAST Ca: Negative. MAMMOGRAPHIC FINDINGS: LEFT BREAST: On the study of 03/11/2012, the patient was noted to have a small cluster of calcifications in the upper outer quadrant. These are relatively large, coarse and rounded in appearance and would favor a probably benign process. These were observed for stability and on the study of 10/12/2012 a few additional calcifications formed posterior to the initial cluster. All of the calcifications are very similar in appearance. There is no appreciable underlying mass in this vicinity, but further evaluation sonographically is recommended as this does represent an interval change. This digital mammogram was also analyzed by the Computer Aided Detection System (CAD), Scratch Hardcker, Version 8.3. LEFT BREAST ULTRASOUND: Sonographic evaluation was carried out in the left upper outer quadrant and there were no cystic or solid masses identified. Procedure Note Hilda Rosales MD - 11/20/2012 REASON FOR EXAM: The patient was referred to our facility for a second opinion regarding findings in the left breast. IMAGING PERFORMED: Left lateral projection and magnification views in the CC and lateral projection. COMPARISON(S): 09/06/2004, 01/27/2006, 04/18/2008, 05/29/2010, 03/11/2012, 04/01/2012, 10/12/2012. TISSUE COMPOSITION: Average, scattered fibroglandular densities. FAMILY HX.-BREAST Ca: Negative. MAMMOGRAPHIC FINDINGS: LEFT BREAST: On the study of 03/11/2012, the patient was noted to have a small cluster of calcifications in the upper outer quadrant. These are relatively large, coarse and rounded in appearance and would favor a probably benign process. These were observed for stability and on the study of 10/12/2012 a few additional calcifications formed posterior to the initial cluster. All of the calcifications are very similar in appearance. There is no appreciable underlying mass in this vicinity, but further evaluation sonographically is recommended as this does represent an interval change. This digital mammogram was also analyzed by the Computer Aided Detection System (CAD), Concentra ImageCirroSecurecker, Version 8.3. LEFT BREAST ULTRASOUND: Sonographic evaluation was carried out in the left upper outer quadrant and there were no cystic or solid masses identified. IMPRESSION IMPRESSION: Review of multiple prior outside studies as well as today's additional views demonstrates a focal grouping of calcifications in the upper outer quadrant. Currently these calcifications favor a probably benign process and I would continue to recommend observation. There is no associated soft tissue mass with these calcifications. I would recommend that the patient have a bilateral exam in 6 months. That study should include additional magnification views on the left to assess stability. Patient received the result and recommendation letter. MARISSA/jose martin 1205 PM - uploaded from [employer] - us Dora Lagunas MD MAMMO ORDERABLES Final Res ult documented in this encounter Visit Diagnoses Diagnosis Other (abnormal) findings on radiological examination of breast Other (abnormal) findings on radiological examination of breast Other (abnormal) findings on radiological examination of breast documented in this encounter Care Teams Stores Assistant Relationship Specialty Start Date End Date Bandar De La Torre DO [address] [address] PCP - General Internal Medicine 09/03/17 documented as of this encounter
--- OUTSIDE RECORDS SUMMARY | 2025-10-28 20:19 | XMS_ITS | Encounter Summary ---
Author Organization [facility] Address [address] [place] [address] Care Team Providers Care Edger Technician Name Role Phone Bandar De La Torre Primary Care Provide r Reason for Referral * Outpatient Services (Routine) - Closed Specialty Diagnoses / Procedures Referred By Jamaal ruiz Referred To Contact Diagnoses Other screening mammogram Procedures MAMMO DIGITAL SCREEN BILAT Libra Tierney NP Phone: tel: fax: [facility] Pre-Registration [place] CALL TO MAKE APPOINTMENT ONLY [address] [place] [address] Phone: tel: fax: Referral ID Status Reason Start Date Expiration Date V isits Requested Visits Authorized [id number] Closed F [facility] TO SCHEDULE (SGF) 05/08/2015 06/07/2016 1 1 Encounter Details Date Type Department Care Team (Latest Contact Info) Description 05/08/2015 Ancillary Orders [facility] Pre-Registration [place] CALL TO MAKE APPOINTMENT ONLY [address] [place] [address] Libra Tierney NP [address] [place] [address] Other screening mammogram (Primary Dx) Social History Tobacco Use Types Packs/Day Years Used Date Smoking Tobacco: Never Assessed Comments Unknown Sex and Gender Information Value Date Recorded Sex Assigned at Not on file Legal Sex Female 9:07 AM SERVICE WRITER Gender Identity Not on file Sexual Orientation Not on file Occupation Industry Job Start Date Job End Date Not on file Not on file Not on file Not on file documented as of this encounter Plan of Treatment Not on file documented as of this encounter Results * MAMMO DIGITAL SCREEN BILAT (06/29/2015 11:35 AM CDT) Anatomical Region Laterality Modality Breast Bilateral Mammography Narrative 06/30/2015 4:57 PM CDT Bilateral Mammogram Reason for Exam: Screening Comparison: Compared to: 05/24/2013 MAMMO DIGITAL DIAG BILAT Findings: Bilateral CC and MLO views were obtained. This examination was reviewed with the aid of a computer-aided detection system(CAD). The breast tissue density is fatty. No significant new findings since the prior mammogram(s). Libra Tierney SECOND STEWARD MAMMO ORDERABLES Final Result documented in this encounter Visit Diagnoses Diagnosis Other screening mammogram- Primary Other screening mammogram documented in this encounter Care Teams Edger Technician Relationship Specialty Start Date End Date Bandar De La Torre DO [address] [address] PCP - General Internal Medicine 09/03/17 documented as of this encounter
--- OUTSIDE RECORDS SUMMARY | 2025-10-28 20:19 | XMS_ITS | Encounter Summary ---
Author Organization [facility] Address [address] [place] [address] Care Team Providers Care J2Ee Developer Name Role Phone Bandar De La Torre DO Primary Care Provide r Encounter Details Date Type Department Care Team (Late st Contact Info) Description 03/24/[address] [facility] [address] [place] [address] Bandar De La Torre DO [address] [place] [address] Abnormal mammogram Social History Tobacco Use Types Packs/Day Years Used Date Smoking Tobacco: Former Alcohol Use Standard Drinks/Week Comments No 0 (1 standard drink = 0.6 oz pur e alcohol) Comments Unknown Sex and Gender Information Value Date Recorded Sex Assigned at Not on file Legal Sex Female 9:07 AM STEREOTYPER HELPER Gender Identity Not on file Sexual Orientation Not on file Occupation Industry Job Start Date Job End Date Not on file Not on file Not on file Not on file documented as of this encounter Plan of Treatment Not on file documented as of this encounter Results * MAMMO PRIOR STUDY (10/12/2012 10:05 AM STEREOTYPER HELPER) Narrative 03/24/2018 10:03 AM CDT This exam was auto finalized to allow images to be scanned to PACS. us Bandar De La Torre DO DIAGNOSTIC IMAGING OR DERABLES Final Result * MAMMO PRIOR STUDY (04/01/2012 10:05 AM CDT) Narrative 03/24/2018 10:03 AM CDT This exam was auto finalized to allow images to be scanned to PACS. Bandar De La Torre DO DIAGNOSTIC IMAGING OR DERABLES Final Result * MAMMO PRIOR STUDY (03/11/2012 10:20 AM CDT) Narrative 03/24/2018 10:16 AM CDT This exam was auto finalized to allow images to be scanned to PACS. Bandar De La Torre DO DIAGNOSTIC IMAGING OR DERABLES Final Result * MAMMO PRIOR STUDY (05/29/2010 10:20 AM CDT) Narrative 03/24/2018 10:16 AM CDT This exam was auto finalized to allow images to be scanned to PACS. Bandar De La Torre DO DIAGNOSTIC IMAGING OR DERABLES Final Result * MAMMO PRIOR STUDY (04/18/2008 10:20 AM CDT) Narrative 03/24/2018 10:17 AM CDT This exam was auto finalized to allow images to be scanned to PACS. Bandar De La Torre DO DIAGNOSTIC IMAGING OR DERABLES Final Result documented in this encounter Visit Diagnoses Diagnosis Abnormal mammogram Abnormal mammogram, unspecified Abnormal mammogram Abnormal mammogram, unspecified Abnormal mammogram Abnormal mammogram, unspecified Abnormal mammogram Abnormal mammogram, unspecified Abnormal mammogram Abnormal mammogram, unspecified Abnormal mammogram Abnormal mammogram, unspecified documented in this encounter Care Teams J2Ee Developer Relationship Specialty Start Date End Date De La Torre Bandar [place], DO [address] [address] PCP - General Internal Medicine 09/03/17 documented as of this encounter
--- OUTSIDE RECORDS SUMMARY | 2025-10-28 20:19 | XMS_ITS | Encounter Summary ---
Author Organization [facility] Address [address] [place] [address] Care Team Providers Care Feed Mixer Helper Name Role Phone Bandar De La Torre DO Primary Care Provide r Reason for Referral * Outpatient Services (Routine) - Closed Specialty Diagnoses / Procedures Referred By Jamaal ruiz Referred To Contact Diagnoses Other (abnormal) findings on radiological examination of breast Procedures MAMMO DIGITIZED STUDY Dora Lagunas MD [address] [place] [address] Phone: tel: fax: Referral ID Status Reason Start Date Expiration Date Visits Re quested Visits Authorized [id number] Closed 11/17/2012 12/18/2013 1 1 CONDITIONING MANAGER * Outpatient Services (Routine) - Closed Specialty Diagnoses / Procedures Referred By Jamaal ruiz Referred To Contact Diagnoses Other (abnormal) findings on radiological examination of breast Procedures MAMMO DIGITIZED STUDY Dora Lagunas MD [address] [place] [address] Phone: tel: fax: Referral ID Status Reason Start Date Expiration Date Visits Re quested Visits Authorized [id number] Closed 11/17/2012 12/18/2013 1 1 CONDITIONING MANAGER Encounter Details Date Type Department Care Team (Late st Contact Info) Description 11/17/2012 Ancillary Orders [facility] [address] [address] Dora Lagunas MD [address] [place] [address] Other (abnormal) findings on radiological examination of breast Social History Tobacco Use Types Packs/Day Years Used Date Smoking Tobacco: Never Assessed Comments Unknown Sex and Gender Information Value Date Recorded Sex Assigned at Not on file Legal Sex Female 9:07 AM AIR CONDITIONING MANAGER Gender Identity Not on file Sexual Orientation Not on file documented as of this encounter Plan of Treatment Not on file documented as of this encounter Results * MAMMO DIGITIZED STUDY (01/27/2006 2:02 PM AIR CONDITIONING MANAGER) Narrative Raina Tate, RT - 11/17/2012 2:02 PM AIR CONDITIONING MANAGER Order information only. Exam was auto-finalized. Procedure Note Raina Tate, RT - 11/17/2012 Order information only. Exam was auto-finalized. us Dora Lagunas MD DIAGNOSTIC IMAGING ORDERAB LES Final Result * MAMMO DIGITIZED STUDY (09/06/2004 2:03 PM CDT) Narrative Raina Tate, RT - 11/17/2012 2:03 PM AIR CONDITIONING MANAGER Order information only. Exam was auto-finalized. Procedure Note Raina Tate, RT - 11/17/2012 Order information only. Exam was auto-finalized. us Dora Lagunas MD DIAGNOSTIC IMAGING ORDERAB LES Final Result documented in this encounter Visit Diagnoses Diagnosis Other (abnormal) findings on radiological examination of breast Other (abnormal) findings on radiological examination of breast Other (abnormal) findings on radiological examination of breast documented in this encounter Care Teams Feed Mixer Helper Relationship Specialty Start Date End Date Bandar De La Torre DO [address] [address] PCP - General Internal Medicine 09/03/17 documented as of this encounter
--- OUTSIDE RECORDS SUMMARY | 2025-10-28 20:19 | XMS_ITS | Encounter Summary ---
Author Organization [facility] Address [address] [place] [address] Care Team Providers Care Clinical Research Management Associate Name Role Phone Bandar De La Torre DO Primary Care Provide r Reason for Referral * Outpatient Services (Routine) - Closed Specialty Diagnoses / Procedures Referred By Jamaal t Referred To Contact Diagnoses Other screening mammogram Procedures MAMMO DIGITAL SCREEN BILAT Dora Lagunas MD [address] [place] [address] Phone: tel: fax: [facility] Pre-Registration [place] CALL TO MAKE APPOINTMENT ONLY [address] [place] [address] Phone: tel: fax: Referral ID Status Reason Start Date Expiration Date V isits Requested Visits Authorized [id number] Closed [facility] TO SCHEDULE ([facility]) 05/04/2014 06/04/2015 1 1 Encounter Details Date Type Department Care Team (Late st Contact Info) Description 05/04/2014 Ancillary Orders [facility] CALL TO MAKE APPOINTMENT ONLY [address] [place] [address] Dora Lagunas MD [address] [place] [address] Other screening mammogram (Primary Dx) Social History Tobacco Use Types Packs/Day Years Used Date Smoking Tobacco: Never Assessed Comments Unknown Sex and Gender Information Value Date Recorded Sex Assigned at Not on file 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 Gender Identity Not on file Sexual Orientation Not on file Occupation Industry Job Start Date Job End Date Not on file Not on file Not on file Not on file documented as of this encounter Plan of Treatment Not on file documented as of this encounter Results * MAMMO DIGITAL SCREEN BILAT (05/25/2014 9:10 AM CDT) Anatomical Region Laterality Modality Breast Bilateral Mammography Narrative 05/26/2014 4:50 PM CDT Bilateral Mammogram Reason for Exam: Screening Comparison: Compared to: 05/24/2013 MAMMO DIGITAL DIAG BILAT, 11/19/2012 MAMMO DIGITAL DIAG UNI LEFT, 09/06/2004 MAMMO DIGITIZED STUDY, 6.9.08, 7.20.10, Findings: Bilateral CC and MLO views were obtained. This examination was reviewed with the aid of a computer-aided detection system(CAD). The breast tissue density is fatty. Asymmetric breast tissue is noted on the right. No significant new findings since the prior mammogram(s). Procedure Note Hilda Rosales MD - 05/26/2014 Bilateral Mammogram Reason for Exam: Screening Comparison: Compared to: 05/24/2013 MAMMO DIGITAL DIAG BILAT, 11/19/2012MAMMO DIGITAL DIAG UNI LEFT, 09/06/2004 MAMMO DIGITIZED STUDY, 6.9.08,7.20.10, Findings: Bilateral CC and MLO views were obtained. This examination was reviewed with the aid of a computer-aided detectionsystem(CAD). The breast tissue density is fatty. Asymmetric breast tissue is noted onthe right. No significant new findings since the prior mammogram(s). us Dora Lagunas MD MAMMO ORDERABLES Final Res ult documented in this encounter Visit Diagnoses Diagnosis Other screening mammogram- Primary Other screening mammogram documented in this encounter Care Teams Clinical Research Management Associate Relationship Specialty Start Date End Date Bandar De La Torre DO [address] [phone] PCP - General Internal Medicine 09/03/17 documented as of this encounter
--- OUTSIDE RECORDS SUMMARY | 2025-10-28 20:19 | XMS_ITS | Encounter Summary ---
Author Organization [facility] Address [address] [place] [address] Care Team Providers Care Farmer And Grazier Name Role Phone Bandar De La Torre Primary Care Provide r Reason for Referral * Outpatient Services (Routine) - Closed Specialty Diagnoses / Procedures Referred By Jamaal ruiz Referred To Contact Diagnoses Encounter for screening mammogram for malignant neoplasm of breast Procedures MAMMO DIGITAL SCREEN BILAT Narendra Mckeon III, DO [address] [place] [address] Phone: tel: fax: [facility] Pre-Registration [place] CALL TO MAKE APPOINTMENT ONLY [address] [place] [address] Phone: tel: fax: Referral ID Status Reason Start Date Expiration Date V isits Requested Visits Authorized [id number] Closed [facility] MC TO SCHEDULE ([facility]) 07/01/2016 08/01/2017 1 1 Encounter Details Date Type Department Care Team (Late st Contact Info) Description 07/01/2016 Ancillary Orders [facility] Pre-Registration [place] CALL TO MAKE APPOINTMENT ONLY [address] [place] [address] Narendra Mckeon III, DO [address] [place] [address] Encounter for screening mammogram for malignant neoplasm of breast (Primary Dx) Social History Tobacco Use Types Packs/Day Years Used Date Smoking Tobacco: Former Alcohol Use Standard Drinks/Week Comments No 0 (1 standard drink = 0.6 oz pur e alcohol) Comments Unknown Sex and Gender Information Value Date Recorded Sex Assigned at Not on file 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 Gender Identity Not on file Sexual Orientation Not on file Occupation Industry Job Start Date Job End Date Not on file Not on file Not on file Not on file documented as of this encounter Plan of Treatment Not on file documented as of this encounter Results * MAMMO DIGITAL SCREEN BILAT (08/14/2016 9:04 AM CDT) Anatomical Region Laterality Modality Breast Bilateral Mammography Narrative 08/15/2016 3:26 PM CDT Bilateral Mammogram Reason for Exam: Screening Comparison: Compared to: 06/29/2015 MAMMO DIGITAL SCREEN BILAT, 05/25/2014 MAMMO DIGITAL SCREEN BILAT, 05/24/2013 MAMMO DIGITAL DIAG BILAT, 11/19/2012 MAMMO DIGITAL DIAG UNI LEFT, 10/12/2012 MAMMO DIGITAL DIAG UNI LEFT 7.20.10 5.2.12 5.23.12 Findings: Bilateral CC and MLO views were obtained. This examination was reviewed with the aid of a computer-aided detection system(CAD). The breast tissue density is fatty. No significant new findings since the prior mammogram(s). Narendra Mckeon III, DO MAMMO ORDERABLES Final Result documented in this encounter Visit Diagnoses Diagnosis Encounter for screening mammogram for malignant neoplasm of breast- Primary Other screening mammogram Encounter for screening mammogram for malignant neoplasm of breast Other screening mammogram documented in this encounter Care Teams Farmer And Grazier Relationship Specialty Start Date End Date Bandar De La Torre DO [address] [address] PCP - General Internal Medicine 09/03/17 documented as of this encounter
--- OUTSIDE RECORDS SUMMARY | 2025-10-28 20:19 | XMS_ITS | Data Portability ---
Author Organization YOBANY Sudeep Morillo [facility], [place], [facility] Address [address] [facility] [address] [place] [address] Care Team Providers Care Medical Clerk Name Role Phone BANDAR DE LA TORRE Primary Care Provider [facility] Referrin g Provider ANNALISA FELDER Referring Provider RYNE DELCID Referring Provider [phone] Assessment No assessment recorded. Plan of Treatment Reminders Order Date Submit Date Provider Last Modified By Organization Details Last Modified Time Details Appointments None recorded. Lab HbA1c (hemoglobin A1c), blood 2024 025 [email or web address] [employer] [facility], [address] [place] [address], [facility] [address] [place], [address], 13:32:02 TSH, serum or plasma 2024 025 [email or web address] [facility] ([facility]), [address] [place], [address], 13:32:02 HbA1c (hemoglobin A1c), blood 2024 025 [email or web address] [facility], [address] [facility], [facility] [address], [address], 5 17:08:26 thyrotropin , QN, serum or plasma 2024 025 LEILA Sudeep [facility], [address] [facility], [facility], [place], [address], 5 12:48:05 T3, free, serum or plasma 2024 025 LEILAMister [facility], [address] [place] [address] 248, [address], [place], [address], 5 07:13:30 T4, free, serum 2024 025 LEILAMister [facility], [address] [place] [address] 248, [address], [place], [address], 5 07:13:29 hemoglobin A1C/hemoglo bin total, QN, blood 2023 024 HANOVER [facility], [address], [address], [place], [address], 4 12:37:43 vitamin D, 25-hydroxy, total, serum 2023 024 LEILARivalry [facility], [address] [place] [address] 248, [address], [place], [address], 4 05:26:43 thyrotropin , QN, serum or plasma 2023 024 [facility], [address], [address], [place], [address], 4 14:50:40 CMP, serum or plasma 2023 024 [facility], [address], [address], [place], [address], 4 13:56:15 lipid panel, blood 2023 024 HANOVER Sheets [facility], [address], [address], [place], [address], 4 13:56:17 CBC 2023 024 [facility], [address], [address], [place], [address], 4 11:55:05 CMP, serum or plasma 2023 024 [facility], [address], [address], [place], [address], 4 13:51:00 CBC 2023 024 [facility], [address], [address], [place], [address], 4 11:46:31 TSH, serum or plasma 2023 024 [facility] ([facility]), [address] [place], [address], 12:58:58 Referral registered dietitian referral 2024 [email or web address], [address] [place], [address], 5 12:34:07 Procedures None recorded. Surgeries None recorded. Imaging None recorded. Medication Orders Augmentin 875 mg-125 mg tablet 2023 024 [facility] #[id number], [address] [facility] [address], [facility], [place], [address], 4 11:06:02 Patient TargetsNo targets recorded. Patient Instructions Encounter Date Encounter Id Patient Instructions Last Modified By Organization Details Last Modified Time 04/07/2024 [id number] bp controlled sh e has a friend online she is giving money to; I discouraged this labs today [email or web address] Not available 04/07/2024 11:21:11 10/11/2024 [id number] admitted for pneumonia; better now labs today doing well emotionally plans to switch to Dr. Korey [email or web address] Not available 10/11/2024 11:08:21 Reason for Referral Registered Dietitian Referra l for Morbid obesity Referring Physician: Yifan Nair, Family Medicine, Encounter Date: 01/11/2025 Results Created Date Observation Date Name Description Value Unit Range Abnormal Flag Note LastModifiedBy Organization Detail LastModifiedTime 04/07/20 24 04/07/2024 CBC WBC 6.6 x10 4.0-10 .5 Not Available [facility] [address] [address], [place], [address], 04/07/2024 11:46:31 04/07/20 24 04/07/2024 CBC RBC 4.70 x10 3.50-5 .50 Not Available [facility] [address] [address] [facility] [address], [place], [address], 04/07/2024 11:46:31 04/07/20 24 04/07/2024 CBC HGB 13.7 g/dL 12.0-1 6.0 Not Available [facility] [address] [address], [place], [address], 04/07/2024 11:46:31 04/07/20 24 04/07/2024 CBC HCT 41.7 % 37.0-4 7.0 Not Available [facility] [address] [facility], [place], [address], 04/07/2024 11:46:31 04/07/20 24 04/07/2024 CBC MCV 88.7 fL 80.0-9 9.9 Not Available [facility] [address] [address] [facility] [address], [place], [address], 04/07/2024 11:46:31 04/07/20 24 04/07/2024 CBC MCH 29.1 pg 27.0-3 2.0 Not Available [facility] [address] [facility] [address] [facility] [address] [facility], [place], [address], 04/07/2024 11:46:31 04/07/20 24 04/07/2024 CBC MCHC 32.8 g/dL 32.0-3 6.0 Not Available [facility] [address] [facility], [place], [address], 04/07/2024 11:46:31 04/07/20 24 04/07/2024 CBC RDW 14.2 % 11.5-1 4.5 Not Available [facility] [address] [facility], [place], [address], 04/07/2024 11:46:31 04/07/20 24 04/07/2024 CBC plt 310.7 x10 140.0- 451.0 Not Available [facility] [address] [facility], [place], [address], 04/07/2024 11:46:31 04/07/20 24 04/07/2024 CBC lymphocytes % 22.7 % 20.0-5 0.0 Not Available [facility] [address] [facility], [place], [address], 04/07/2024 11:46:31 04/07/20 24 04/07/2024 CBC granulcytes % 65.2 % 30.0-7 0.0 Not Available [facility] [address] [facility], [place], [address], 04/07/2024 11:46:31 04/07/20 24 04/07/2024 CBC monocytes % 8.3 % 2.0-10 .0 Not Available [facility] [address] [facility], [place], [address], 04/07/2024 11:46:31 04/07/20 24 04/07/2024 CBC granulcytes# 4.3 x10 Not Sarah ilable [facility] [address] [facility], [place], [address], 04/07/2024 11:46:31 04/07/20 24 04/07/2024 CBC lymphocytes # 1.5 x10 Not Available [facility] [address] [facility], [place], [address], 04/07/2024 11:46:31 04/07/20 24 04/07/2024 CBC monocytes # 0.6 x10 Not Avai lable [facility] [address] [address], [place], [address], 04/07/2024 11:46:31 04/07/20 24 04/07/2024 CMP (FEMA LE) glucose 107.0 mg/dL 60.0-9 9.0 high Not Available [facility] [address] [address], [place], [address], 04/07/2024 13:51:00 04/07/20 24 04/07/2024 CMP (FEMA LE) BUN (blood urea nitrogen) 16.0 mg/dL 10.0-2 6.0 Not Available [facility] [address] [address], [place], [address], 04/07/2024 13:51:00 04/07/20 24 04/07/2024 CMP (FEMA LE) creatinine (serum) 0.9 mg/dL 0.4-1. 5 Not Available [facility] [address] [address], [place], [address], 04/07/2024 13:51:00 04/07/20 24 04/07/2024 CMP (FEMA LE) BUN/creatini ne ratio 18.39 ratio Not Available [facility] [address] [address], [place], [address], 04/07/2024 13:51:00 04/07/20 24 04/07/2024 CMP (FEMA LE) eGFR calculated 69.7 Not Available [facility] [address] [facility], [place], [address], 04/07/2024 13:51:00 04/07/20 24 04/07/2024 CMP (FEMA LE) total protein 7.3 g/dL 6.0-8. 5 Not Available [facility] [address] [facility], [place], [address], 04/07/2024 13:51:00 04/07/20 24 04/07/2024 CMP (FEMA LE) total bilirubin 1.2 mg/dL 0.2-1. 3 Not Available [facility] [address] [facility], [place], [address], 04/07/2024 13:51:00 04/07/20 24 04/07/2024 CMP (FEMA LE) albumin 4.2 g/dL 3.5-5. 5 Not Available [facility] [address] [facility], [place], [address], 04/07/2024 13:51:00 04/07/20 24 04/07/2024 CMP (FEMA LE) globulin 3.1 calc Not Available [facility] [address] [address], [place], [address], 04/07/2024 13:51:00 04/07/20 24 04/07/2024 CMP (FEMA LE) AST (SGOT) 26.0 U/L 0.0-46 .0 Not Available [facility] [address] [facility] [address] [facility], [place], [address], 04/07/2024 13:51:00 04/07/20 24 04/07/2024 CMP (FEMA LE) altv (SGPT) 19.0 U/L 13.0-6 9.0 normal Not Available [facility] [address] [facility], [place], [address], 04/07/2024 13:51:00 04/07/20 24 04/07/2024 CMP (FEMA LE) A/G ratio 1.4 ratio Not Available [facility] [address] [facility], [place], [address], 04/07/2024 13:51:00 04/07/20 24 04/07/2024 CMP (FEMA LE) ALP phos 113.0 U/L 30.0-1 40.0 normal Not Available [facility] [address] [facility], [place], [address], 04/07/2024 13:51:00 04/07/20 24 04/07/2024 CMP (FEMA LE) calcium 9.3 mg/dL 8.4-10 .5 Not Available [facility] [address] [facility], [place], [address], 04/07/2024 13:51:00 04/07/20 24 04/07/2024 CMP (FEMA LE) sodium 137.0 mmol/ L 136.0- 145.0 Not Available [facility] [address] [facility] 1, [place], [address], 04/07/2024 13:51:00 04/07/20 24 04/07/2024 CMP (FEMA LE) potassium 4.0 mmol/ L 3.5-5. 1 Not Available [facility] [address] [facility], [place], [address], 04/07/2024 13:51:00 04/07/20 24 04/07/2024 CMP (FEMA LE) chloride 102.0 mmol/ L 98.0-1 10.0 normal Not Available [facility] [address] [facility], [place], [address], 04/07/2024 13:51:00 04/07/20 24 04/07/2024 CMP (FEMA LE) C02 31.0 mmol/ L 22.0-3 1.0 Not Available [facility] [address], [place], [address], 04/07/2024 13:51:00 04/07/20 24 04/07/2024 CMP (FEMA LE) anion gap 4.0 calc Not Available [facility] [address] [facility] [address] [facility], [place], [address], 04/07/2024 13:51:00 04/07/20 24 04/07/2024 CMP (FEMA LE) osmolality 284.7 calc Not Available [facility] [address] [facility] [facility], [place], [address], 04/07/2024 13:51:00 04/07/20 24 04/07/2024 TSH, serum or plasm a TSH 0.10 uIU/m L 0.49-3 .82 low Not Available [facility] ([facility]) [address] [place] [address], [address], 04/07/2024 11:19:38 04/15/20 24 04/15/2024 TSH, serum or plasm a TSH uIU/m L 0.49-3 .82 Not Available [facility] ([facility]) [address] [place], [address], 04/13/2024 14:26:10 10/11/20 24 10/11/2024 CBC WBC 7.0 x10 4.0-10 .5 Not Available [facility] [address] [facility] [address] [facility], [place], [address], 10/11/2024 11:55:05 10/11/20 24 10/11/2024 CBC RBC 4.61 x10 3.50-5 .50 Not Available [facility] [address], [place], [address], 10/11/2024 11:55:05 10/11/20 24 10/11/2024 CBC HGB 13.4 g/dL 12.0-1 6.0 Not Available [facility] [address] [facility] [address], [place], [address], 10/11/2024 11:55:05 10/11/20 24 10/11/2024 CBC HCT 40.2 % 37.0-4 7.0 Not Available [facility] [address] [facility] [address], [place], [address], 10/11/2024 11:55:05 10/11/20 24 10/11/2024 CBC MCV 87.3 fL 80.0-9 9.9 Not Available [facility] [address] [facility], [place], [address], 10/11/2024 11:55:05 10/11/20 24 10/11/2024 CBC MCH 29.0 pg 27.0-3 2.0 Not Available [facility] [address] [facility] [address], [place], [address], 10/11/2024 11:55:05 10/11/20 24 10/11/2024 CBC MCHC 33.2 g/dL 32.0-3 6.0 Not Available [facility] [address] [facility] [address], [place], [address], 10/11/2024 11:55:05 10/11/20 24 10/11/2024 CBC RDW 14.6 % 11.5-1 4.5 high Not Available [facility] [address] [facility], [place], [address], 10/11/2024 11:55:05 12/02/20 24 10/11/2024 CBC plt 261.1 x10 140.0- 451.0 Not Available [facility] [address] [facility], [place], [address], 10/11/2024 11:55:05 10/11/20 24 10/11/2024 CBC lymphocytes % 21.4 % 20.0-5 0.0 Not Available [facility] [address] [facility], [place], [address], 10/11/2024 11:55:05 10/11/20 24 10/11/2024 CBC granulcytes % 65.3 % 30.0-7 0.0 Not Available [facility] [address] [facility], [place], [address], 10/11/2024 11:55:05 10/11/20 24 10/11/2024 CBC monocytes % 9.0 % 2.0-16 .0 Not Available [facility] [address] [facility], [place], [address], 10/11/2024 11:55:05 10/11/20 24 10/11/2024 CBC granulcytes# 4.6 x10 Not Sarah ilable [facility] [address] [facility], [place], [address], 10/11/2024 11:55:05 10/11/20 24 10/11/2024 CBC lymphocytes # 1.5 x10 Not Available [facility] [address] [facility], [place], [address], 10/11/2024 11:55:05 10/11/20 24 10/11/2024 CBC monocytes # 0.6 x10 Not Avai lable [facility] [address] [facility], [place], [address], 10/11/2024 11:55:05 10/11/20 24 10/11/2024 HBA1C hemaglobin A1C 5.6 4.2-6. 5 Not Available [facility] [address] [facility] 1, [place], [address], 10/11/2024 12:37:43 10/11/20 24 10/11/2024 CMP (FEMA LE) glucose 99.0 mg/dL 60.0-9 9.0 Not Available [facility] [address] [facility] 1, [place], [address], 10/11/2024 13:56:15 10/11/20 24 10/11/2024 CMP (FEMA LE) BUN (blood urea nitrogen) 18.0 mg/dL 10.0-2 6.0 Not Available [facility] [address] [facility] 1, [place], [address], 10/11/2024 13:56:15 10/11/20 24 10/11/2024 CMP (FEMA LE) creatinine (serum) 0.9 mg/dL 0.4-1. 5 Not Available [facility] [address] [facility] 1, [place], [address], 10/11/2024 13:56:15 10/11/20 24 10/11/2024 CMP (FEMA LE) BUN/creatini ne ratio 20.00 ratio Not Available [facility] [address] [facility] 1, [place], [address], 10/11/2024 13:56:15 10/11/20 24 10/11/2024 CMP (FEMA LE) eGFR calculated 66.8 Not Available [facility] [address] [facility] 1, [place], [address], 10/11/2024 13:56:15 10/11/20 24 10/11/2024 CMP (FEMA LE) total protein 7.8 g/dL 6.0-8. 5 Not Available [facility] [address] [facility], [place], [address], 10/11/2024 13:56:15 10/11/20 24 10/11/2024 CMP (FEMA LE) total bilirubin 1.0 mg/dL 0.2-1. 3 Not Available [facility] [address] [facility], [place], [address], 10/11/2024 13:56:15 10/11/20 24 10/11/2024 CMP (FEMA LE) albumin 4.3 g/dL 3.5-5. 5 Not Available [facility] [address] [facility], [place], [address], 10/11/2024 13:56:15 10/11/20 24 10/11/2024 CMP (FEMA LE) globulin 3.5 calc Not Available [facility] [address] [facility], [place], [address], 10/11/2024 13:56:15 10/11/20 24 10/11/2024 CMP (FEMA LE) AST (SGOT) 24.0 U/L 0.0-46 .0 Not Available [facility] [address] [facility] 1, [place], [address], 10/11/2024 13:56:15 10/11/20 24 10/11/2024 CMP (FEMA LE) altv (SGPT) 20.0 U/L 13.0-6 9.0 normal Not Available [facility] [address] [facility], [place], [address], 10/11/2024 13:56:15 10/11/20 24 10/11/2024 CMP (FEMA LE) A/G ratio 1.2 ratio Not Available [facility] [address] [facility] 1, [place], [address], 10/11/2024 13:56:15 10/11/20 24 10/11/2024 CMP (FEMA LE) ALP phos 107.0 U/L 30.0-1 40.0 normal Not Available [facility] [address] [facility], [place], [address], 10/11/2024 13:56:15 10/11/20 24 10/11/2024 CMP (FEMA LE) calcium 9.5 mg/dL 8.4-10 .5 Not Available [facility] [address] [facility], [place], [address], 10/11/2024 13:56:15 10/11/20 24 10/11/2024 CMP (FEMA LE) sodium 137.0 mmol/ L 136.0- 145.0 Not Available [facility] [address] [facility], [place], [address], 10/11/2024 13:56:15 10/11/20 24 10/11/2024 CMP (FEMA LE) potassium 4.1 mmol/ L 3.5-5. 1 Not Available [facility] [address] [facility], [place], [address], 10/11/2024 13:56:15 10/11/20 24 10/11/2024 CMP (FEMA LE) chloride 100.0 mmol/ L 98.0-1 10.0 normal Not Available [facility] [address] [facility], [place], [address], 10/11/2024 13:56:15 10/11/20 24 10/11/2024 CMP (FEMA LE) C02 31.0 mmol/ L 22.0-3 1.0 Not Available [facility] [address] [facility], [place], [address], 10/11/2024 13:56:15 10/11/20 24 10/11/2024 CMP (FEMA LE) anion gap 6.0 calc Not Available [facility] [address] [facility] 1, [place], [address], 10/11/2024 13:56:15 10/11/20 24 10/11/2024 CMP (FEMA LE) osmolality 285.0 calc Not Available [facility] [address] [facility] 1, [place], [address], 10/11/2024 13:56:15 10/11/20 24 10/11/2024 LIPID PROFI LE (FEMA LE) cholesterol 173.0 mg/dL 0.0-20 0.0 Not Available [facility] [address] [facility] 1, [place], [address], 10/11/2024 13:56:17 10/11/20 24 10/11/2024 LIPID PROFI LE (FEMA LE) trig 143.0 mg/dL 0.0-15 0.0 Not Available [facility] [address] [facility] 1, [place], [address], 10/11/2024 13:56:17 10/11/20 24 10/11/2024 LIPID PROFI LE (FEMA LE) HDL - direct 50.0 mg/dL >40.0 Not Available [facility] [address] [facility] 1, [place], [address], 10/11/2024 13:56:17 10/11/20 24 10/11/2024 LIPID PROFI LE (FEMA LE) VLDL - direct 28.6 mg/dL Not Available [facility] [address] [facility] 1, [place], [address], 10/11/2024 13:56:17 10/11/20 24 10/11/2024 LIPID PROFI LE (FEMA LE) LDL - direct 94.4 mg/dL 0.0-13 0.0 Not Available [facility] [address] [facility], [place], [address], 10/11/2024 13:56:17 10/11/20 24 10/11/2024 TSH TSH 0.46 uIU/m L 0.49-3 .82 low Not Available [facility] [address] [facility], [place], [address], 10/11/2024 14:50:40 10/11/20 24 10/12/2024 VITAM IN D,25- OH,TO GEORGINA,I A vitamin D,25-oh,tota l,ia 58 NG/mL 30-100 normal Vitam in D Statu s 25-OH Vitam in D: Defic iency : <20 ng/mL Insuf ficie ncy: 20 - 29 ng/mL Optim al: > or = 30 ng/mL For 25-OH Vitam in D testi ng on patie nts on D2-walter pplem entat ion and patie nts for whom quant itati on of D2 and D3 fract ions is requi red, the [facility] Assur eD(TM ) 25-OH VIT D, (D2,D 3), LC/MS /MS is recom sandra d: order code 53824 (zarina ents >2yrs ). See Note 1 Note 1 For addit ional infor yung bray e refer to http: //[facility] grace Arriagaia gnost ics.c om/fa q/FAQ 199 (This link is being provi ded for infor cassia diop/ educrocio granado purpo ses only. ) Not Available [facility] [address] [place], [address], 10/12/2024 05:26:43 01/12/20 25 01/11/2025 HBA1C hemaglobin A1C 5.5 4.2-6. 5 Not Available [facility] [address] [facility], [place], [address], 01/11/2025 12:02:33 01/12/20 25 01/11/2025 TSH TSH 0.60 uIU/m L 0.49-3 .82 normal Not Available [facility] [address] [facility], [place], [address], 01/11/2025 12:48:05 01/12/2001/12/2025 T4, FREE T4, free 1.3 NG/dL 0.8-1. 8 normal Not Available [facility] [address] [place], [address], 01/12/2025 07:13:29 01/12/2001/12/2025 T3, FREE T3, free 3.0 pg/mL 2.3-4. 2 normal Not Available [facility] [address] [place], [address], 01/12/2025 07:13:30 06/10/2006/10/2025 COLOG UARD cologuard result reportable NEGATI VE negati ve normal The Colog uard (TM) test was perfo rmed on this speci men. NEGAT TITO TEST RESUL T. A negat tito Colog uard resul t indic ates a low likel ihood that a color ectal cance r (CRC) or advan rona adeno ma (tia omato us polyp s with more advan rona pre-m align ant featu res) is prese nt. The chanc e that a perso n with a negat tito Colog uard test has a color ectal cance r is less than 1 in 1500 (nega tive predi ctive value >99.9 %) or has an advan rona adeno ma is less than 5.3% (nega tive predi ctive value 94.7% ). These data are based on a prosp ectiv e cross -sect ional study of 10,00 0 indiv idual s at round o ge risk for color ectal cance r who were scree uche with both Colog uard and colon oscop y. (Impe riale T. et al, N Engl J Med 2014; 370(1 4):12 86-12 97) The danyel l value (refe rence range ) for this assay is negat tito. COLOG UARD RE-SC REENI TOSIN RECOM MENDA TION: Perio dic color ectal cance r scree fan is an impor tant part of preve ntive healt hcare for asymp tomat ic indiv idual s at [facility] risk for color ectal cance r. Follo wing a negat tito Colog uard resul t, the Ameri can Cance r Socie ty and [employer].[place]. Multi -Soci ety Task Force scree fan guide lines recom mend a Colog uard re-sc reeni ng inter guerda of 3 years . Refer ences : Ameri can Cance r Socie ty Guide line for Color ectal Cance r Scree fan: https ://abdiaziz w.can cer.o rg/ca ncer/ colon -rect al-ca ncer/ detec tion- diagn osis- stagi ng/ac s-rec ommen datio ns.ht ml.; Ryne DK, Carola arango CR, Elle PerezK, Color ectal Cance r Scree fan: Recom menda tions for Physi cians and Patie nts from the [place] Multi -Soci ety Task Force on Color ectal Cance r Scree fan , Am Ana hylton y 2017; 112:1 016-1 030. TEST DESCR IPTIO N: [place] site algor ithmi c yelena sis of stool DNA-b iojoann ayon with hemog lobin immun oassa y. Quant itati ve value s of indiv idual bioma rkers are not repor table and are not assoc iated with indiv idual bioma rker resul t refer ence range s. Colog uard is inten ded for color ectal cance r scree fan of adult s of eithe r sex, 45 years or older , who are at [facility] for color ectal cance r (CRC) . Colog uard has been appro augustin for use by the [place] FDA. The perfo rmanc e of Colog uard was estab lishe d in a cross secti onal study of [facility] sk adult s aged 50-84 . Colog uard perfo rmanc e in patie nts ages 45 to 49 years was estim ated by [place] yelena sis of near- age group s. Colon oscop ies perfo rmed for a posit tito resul t may find as the most clini salvador signi fican t lesio n: color ectal cance r [4.0% ], advan rona adeno ma (incl uding sessi le doug bisi polyp s great er than or equal to 1cm diame ter) [20%] or non- advan rona adeno ma [31%] ; or no color ectal neopl lucina [45%] . These estim ates are deriv ed from a prosp ectiv e cross -sect ional scree fan study of 0 indiv idual s at [facility] risk for color ectal cance r who were scree uche with both Colog uard and colon oscop y. (Mainor Perez et al, N Engl J Med 2014; 370(1 4):12 86-12 97.) Colog uard may produ ce a false negat tito or false posit tito resul t (no color ectal cance r or preca ncero us polyp prese nt at colon oscop y follo w up). A negat tito Colog uard test resul t does not guara ntee the absen ce of CRC or advan rona adeno ma (pre- cance r). The curre nt Colog uard scree fan inter guerda is every 3 years . (Amer ican Cance r Socie ty and U.S. Multi -Soci ety Task Force ). Colog uard perfo rmanc e data in a 0 patie nt pivot al study using colon oscop y as the refer ence metho d can be acces sed at the follo wing locat ion: www.e xactl abs.c om/re sults . Addit ional descr iptio n of the Colog uard test proce ss, warni ngs and preca ution s can be found at www.c ologu diamond.c om. Not Available [employer] [address], [place], [address], 06/16/2025 23:34:58 04/01/20 25 04/01/2025 MAMMO , kristiane fan, digit al, bilat eral No observ ation record ed. [facility] [address] [place], [address], 04/05/2025 09:25:17 Result Notes None recorded. Problems Name Problem SNOMED Code Status Onset Date Resolution Date Notes Provider Name and Address Organization Details Recorded Time Bipolar disorder 74959775 Active 2021 Bipolar Disorder; 2 2:40PM by Anny Bishop, RN, Office Visit; Promoted; acuity set as *; Francia cedillo [facility] 12:58:59 Hyperthy roidism 35547778 Completed 202101/15/2025 Hyperthyr oidism; treated with radioacti ve iodine 2007; 2 2:40PM by Anny Bishop RN, Office Visit; Promoted; acuity set as *; Francia cedillo [facility] 13:00:45 Hypothyr oidism 93422960 Active 2022 Francia cedillo [facility] 13:00:53 Hyperlip idemia 72362990 Active 2022 Francia cedillo [facility] 12:59:57 Body mass index 40+ - severely obese 255037300 Completed 202301/15/2025 Removal Reason: duplicate Francia cedillo [facility] 13:01:57 Hypergly cemia 60951495 Active 2023 Francia cedillo [facility] 12:59:40 Vitamin D deficien cy 33836102 Active 2023 Francia cedillo [facility] 13:01:06 Morbid obesity 493714703 Active 2024 Francia cedillo [facility] 13:01:00 Insomnia 966665571 Active 2024 Yifan Nair MD [address] [place], [address], [facility] 09:23:43 Problem Notes None recorded. Procedures Surgical History Date Name Laterality Status Provider Name and Address Organization Details Recorded Time 06/10/20 25 colonoscopy completed GISELE NIEVES [address] [place], [address], [facility] 06/17/2025 07:20:52 11/10/19 12 arthroscopy of knee completed [facility] 01/11/2025 11:12:46 11/10/18 88 cholecystostomy completed [facility] 01/11/2025 11:13:15 11/10/18 63 tonsillectomy completed [facility] 01/11/2025 11:13:57 ligation of fallopian tube completed [facility] 01/11/2025 11:12:15 Imaging Results None recorded. Procedure Notes None recorded. Medical Equipment None Reported. Allergies Allergen ID Allergen Name Allergen Category Reaction Reaction Severity Criticality Documentation Date Start Date Code Code System Note Provider Name and Address Organization Details Recorded Time 1317 Levaquin medicatio n Not available Not available Not available 02/18/2023 04150 2 RxNorm unkno wn [facility] 14:21:15 1318 chlorphen iramine / pseudoeph edrine medicatio n anaphylax is severe high 02/18/2023 56047 5 RxNorm OBDULIO LÓPEZ [facility] 3 14:21:40 18243 acetamino phen / dextromet horphan / guaifenes in / pseudoeph edrine medicatio n anaphylax is Not available Not available 06/07/2023 04632 8 RxNorm React ion: Anaph ylaxi s; Comme nt: Recor ded 09/25 2:40P M by Merle montanez RN, Offic e Visit ; William mathews; Nathaniel alaniz ce: *; Reaso n: Drug aller gy; ; Not Available [facility] 3 02:29:48 26829 egg extract food,medi cation Not available Not available Not available 01/11/2025 28935 15 RxNorm Jer Orozco [facility] 5 11:07:12 92592 Latex (substanc e) environme nt,medica tion Not available Not available Not available 01/11/2025 40895 8007 [facility]ED [facility] 11:07:20 Medications Name Sig Start Date Stop Date Status Note LastModified by Organization Details LastModified Time ziprasido ne 80 mg capsule TAKE 1 CAPSULE BY MOUTH TWICE A DAY WITH A MEAL OR SNACK active Not Available Not Available No t Available atorvasta tin 40 mg tablet TAKE 1 TABLET BY MOUTH EVERY DAY active Not Available Not Available No t Available promethaz ine-DM 6.25 mg-15 mg/5 mL oral syrup TAKE 5-10 ML BY MOUTH EVERY 6 HOURS NEEDED 12/15 completed Not Available Not Available Not Available levothyro xine 137 mcg tablet TAKE 1 TABLET BY MOUTH EVERY DAY FOR 30 DAYS active Not Available Not Available No t Available doxycycli ne hyclate 100 mg capsule TAKE 1 CAPSULE BY MOUTH TWICE A DAY FOR 7 DAYS 10/11 completed Not Available Not Available Not Available azithromy siddhartha 250 mg tablet TAKE 2 TABLETS BY MOUTH TODAY, THEN TAKE 1 TABLET DAILY FOR 4 DAYS DIRECTED 10/11 completed Not Available Not Available Not Available benzonata te 200 mg capsule TAKE 1 CAPSULE BY MOUTH THREE TIMES A DAY NEEDED FOR COUGH 10/11 completed Not Available Not Available Not Available prednison e 20 mg tablet TAKE 2 TABLETS BY MOUTH EVERY DAY FOR 5 DAYS 10/11 completed Not Available Not Available Not Available dexametha sone 6 mg tablet TAKE 1 TABLET BY MOUTH EVERY DAY FOR 5 DAYS 10/11 completed Not Available Not Available Not Available trazodone 100 mg tablet TAKE 1 TABLET BY MOUTH AT BEDTIME NEEDED FOR SLEEP/IN SOMNIA active Not Available Not Available No t Available erythromy siddhartha 5 mg/gram (0.5 %) eye ointment USE 1 APPLICAT ION TO EYE(S) TWO TIMES DAILY 03/26 completed Not Available Not Available Not Available polymyxin B sulfate 10,000 unit-trim ethoprim 1 mg/mL eye drops PLACE 1 DROP INTO AFFECTED EYE(S) 4 TIMES DAILY 12/15 completed Not Available Not Available Not Available levothyro xine 150 mcg tablet TAKE 1 TABLET BY MOUTH EVERY DAY 10/11 completed Not Available Not Available Not Available methylpre dnisolone 4 mg tablets in a dose pack TAKE BY MOUTH DIRECTED ON INSIDE OF PACKAGE 12/15 completed Not Available Not Available Not Available albuterol sulfate HFA 90 mcg/actua tion aerosol inhaler TAKE 2 PUFFS BY MOUTH EVERY 4 HOURS 01/11 completed Not Available Not Available Not Available amoxicill in 875 mg-potass ium clavulana te 125 mg tablet TAKE 1 TABLET BY MOUTH EVERY 12 HOURS FOR 10 DAYS 10/11 completed Not Available Not Available Not Available lancets d 2020 active cs/smf; 65847; Recorded 03/20/20 22 8:52AM by Lexy Fisher (Authori titus through Bandar De La Torre DO), Office Visit; Refill Quantity : 100; Each; Not Available Not Available Not Available Vitamin D3 01/11 completed Not Available Not Available Not Available Trazodone at bedtime as needed 01/11 completed 0; Recorded 09/25/20 22 2:41PM by Ayesha Bishop RN, Office Visit; Not Available Not Available Not Available Accu-Chek Active daily 10/11 completed cs/smf; 62626; Recorded 12/09/19 23 7:55AM by Ayesha Bishop RN (Authori [employer] through Bandar De La Torre DO), Refill Request; Refill Quantity : 0; Not Available Not Available Not Available Accu-Chek Spirit Pouch daily 2020 active cs/smf; 92697; Recorded 03/20/20 22 8:52AM by Lexy Fisher (Authori [employer] through Bandar De La Torre DO), Office Visit; Refill Quantity : 100; Kit; Not Available Not Available Not Available Vitamin D3 50 mcg (2,000 unit) capsule Take 2 capsules every day by oral route for 90 days. 2022 active OTC Not Available Not Available Not Avai lable Accu-Chek Deja Plus test strips USE ONE STRIP DAILY E11.9 active Not Available Not Available No t Available OneTouch Delica Plus Lancet 33 gauge USE 1 WITH DEVICE active Not Available Not Available No t Available Vitals Date Recorded Body height Body mass index (BMI) Body weight Oxygen saturation Heart rate Respiratory rate Body temperature Systolic And Diastolic Provider Name and Address Organization Details Last Updated DateTime 4 165.1 cm 47 kg/m2 547662. 77 g 97 % 93 /min 14 /min 97.1 [degF] 148/94 mm[Hg] Phoebe Soto [facility] 4 14:46:01 Date Recorded Body height Body temperature Body mass index (BMI) Body weight Respiratory rate Oxygen saturation Heart rate Systolic And Diastolic Provider Name and Address Organization Details Last Updated DateTime 5 167.64 cm 98.1 [degF] 44.9 kg/m2 177225. 68 g 18 /min 96 % 67 /min 146/84 mm[Hg] Jer Orozco [facility] 5 11:07:38 Date Recorded Body height Body mass index (BMI) Body weight Respiratory rate Heart rate Oxygen saturation Systolic And Diastolic Provider Name and Address Organization Details Last Updated DateTime 4 165.1 cm 45.9 kg/m2 442333. 49 g 16 /min 118 /min 97 % 138/84 mm[Hg] ANNY BISHOP [facility] 4 11:00:18 Date Recorded Body height Body mass index (BMI) Body weight Oxygen saturation Heart rate Respiratory rate Body temperature Systolic And Diastolic Provider Name and Address Organization Details Last Updated DateTime 5 167.64 cm 46.1 kg/m2 176436. 98 g 95 % 72 /min 18 /min 97.2 [degF] 128/80 mm[Hg] Francia Newton [facility] 5 10:57:08 Date Recorded Body height Body mass index (BMI) Body weight Respiratory rate Heart rate Oxygen saturation Systolic And Diastolic Provider Name and Address Organization Details Last Updated DateTime 4 165.1 cm 46.8 kg/m2 662858. 46 g 20 /min 83 /min 90 % 136/80 mm[Hg] ANNY BISHOP [facility] 4 10:50:54 Social History Question Answer Notes LastModified by Organizat ion Details LastModified Time Tobacco Smoking Status [facility] 01/11/2025 11:11:10 Are You Blind Or Do You Have Difficulty Seeing? No Information not available 03/26/2023 What Is Your Level Of Caffeine Consumption? Moderate Information not available 01/11/2025 Are You Deaf Or Do You Have Serious Difficulty Hearing? No [email or web address] Information not available 03/26/2023 Have You Had Direct Contact, Or Contact During Intimacy, With Monkeypox Rash, Scabs, Or Body Fluids From A Person With Monkeypox? No [email or web address] Information not available 03/26/2023 What Was The Date Of Your Most Recent Tobacco Screening? 07/14/2025 [email or web address] Information not available 07/14/2025 At What Age Did You Start Smoking Tobacco? 16 [email or web address] Information not available 07/14/2025 Have You Recently Traveled Abroad? No [email or web address] Information not available 03/26/2023 Do You Have Difficulty Walking Or Climbing Stairs? No [email or web address] Information not available 03/26/2023 Sex: Unknown Functional Status Question Answer Note LastModified by Organizat ion Details LastModified Time Do you use any illicit or recreational drugs? No [email or web address] Information not available 01/11/2025 What is your level of alcohol consumption? Occasional Information not available 01/11/2025 Are you able to walk independently without assistance or assistive devices? [email or web address] Information not available 03/26/2023 Do you have difficulty doing errands alone? No [email or web address] Information not available 03/26/2023 Are you able to care for yourself independently? Yes [email or web address] Information not available 03/26/2023 Do you have difficulty dressing, bathing, grooming, or toileting? No [email or web address] Information not available 03/26/2023 Do you or have you ever used any nicotine-free cigarettes, vape, or chewing tobacco? No [email or web address] Information not available 01/11/2025 Mental Status Question Answer Note LastModified by Organization D etails LastModified Time Do you have difficulty concentrating, remembering or making decisions? No [email or web address] Information no t available 03/26/2023 Family History Relationship Description Onset Age of this Age Resolved Age Notes LastModified by Organization Details LastModified Time Father Malignant neoplasm of prostate [email or web address] Not available 2024 11:10:26 Mother Diabetes mellitus [email or web address] Not available 2024 11:10:52 Medical History No medical history recorded. Gynecological HistoryNo gynecological history recorded. Obstetrics History GPAL:G 0 P 0 0 0 0 Immunizations Vaccine Type Date Status Note Provider Nam e and Address Organization Details Recorded Time rabies, intramuscular injection 1 completed Not Available [facility] 07/14/2025 10:51:26 COVID-19, mRNA, LNP-S, PF, 100 mcg/0.5mL dose or 50 mcg/0.25mL dose 1 completed Not Available [facility] 07/14/2025 10:51:26 COVID-19, mRNA, LNP-S, PF, 100 mcg/0.5mL dose or 50 mcg/0.25mL dose 1 completed Not Available [facility] 07/14/2025 10:51:26 Past Encounters Encounter ID Performer Location Encounter Start Date Encounter Closed Date Diagnosis/Indication Diagnosis SNOMED-CT Code Diagnosis ICD10 Code Diagnosis IMO Codes Diagnosis Note [id number] GISELE POLK [facility] ([facility]) [address] [place] [id number] 02/18/2023 14:15:05 02/18/2023 14:52:48 Adult health examination 861519196 Z00.00 Acquired hypothyroidism 945589176 E03.9 Mixed hyperlipidemia 267 046488 E78.00 Bipolar disorder 9665316 4 F31.9 Vitamin D deficiency 347 89281 E55.9 Body mass index 40+ - severely obese 577975545 Z68.42 Patient plans on getting membership going at [facility]. [id number] Bandar De La Torre DO [facility]) [address] [place] [id number] 5 03/26/2023 11:31:31 03/26/2023 13:23:43 Hypothyroidism 61223479 E03.9 Hypercholesterolemia 136 67924 E78.00 Hyperlipidemia 68583850 E78.5 [id number] Bandar De La Torre DO [facility]) [address] [place] [id number] 5 10/06/2023 10:51:30 10/06/2023 11:54:35 Bipolar disorder 05813983 F31.9 Hypothyroidism 81187929 E03.9 Hyperglycemia 54720613 R 73.9 Screening for malignant neoplasm of breast 615912523 Z12.39 [id number] GISELE NIEVES [facility] ([facility]) [address] [place] [id number] 5 12/15/2023 16:19:49 12/18/2023 09:25:10 Acute bacterial bronchitis 611562797 J20.9 Discussed use of prednisone and inhaler. Take doxy as prescribed . May use otc cough syrup if needed for cough. VSS. F/u in 3 days if worsening or new symptoms. Rest and push oral fluids. [id number] SARKIS MARIE [facility] ([facility]) [address] [place] [id number] 5 01/07/2024 14:36:11 01/07/2024 15:17:48 Acute sinusitis 35183169 J01.90 Start Augmentin BID today. Encouraged to continue tylenol/ib uprofen as needed for pain and fevers. Continue daily allergy medication s. Recommend pushing fluids and using cool mist humidifier at night. If worsening condition or no improvemen t in 7-10 days, return for further evaluation . If severe SOB or chest pain occurs, go to ED. Patient verbalizes understand ing. [id number] Bandar De La Torre DO [facility] ([facility]) [address] [place] [id number] 5 04/07/2024 10:47:47 04/07/2024 11:25:22 Bipolar disorder 52389256 F31.9 Hypercholesterolemia 136 47907 E78.00 Hyperthyroidism 60233178 E05.90 Body mass index 40+ - severely obese 830723094 Z68.42 [id number] Bandar De La Torre DO [facility] ([facility]) [address] [place] [id number] 5 10/11/2024 10:45:00 10/11/2024 11:32:16 Bipolar disorder 50737354 F31.9 Hyperlipidemia 69865023 E78.5 Hypothyroidism 85040214 E03.9 Hyperglycemia 39402401 R 73.9 Vitamin D deficiency 347 42229 E55.9 [id number] Yifan Nair MD [facility] ([facility]) [address] [place] [id number] 5 01/11/2025 10:57:21 01/11/2025 11:50:00 Hypothyroidism 15401140 E03.9 Will check thyroid function to ensure that she is not being appropriat [place] treated. Hyperglycemia 01044471 R 73.9 Patient has a history of elevated blood sugar so we will check an A1c. Morbid obesity 442520775 E66.01 Discussed weight loss and dietary modificati ons. The patient states that she would like to talk to a dietitian about a diet plan. [id number] Yifan Nair MD [facility] ([facility]) [address] [place] [id number] 5 07/14/2025 10:49:20 07/14/2025 11:25:10 Hypothyroidism 67405914 E03.9 Will check thyroid function to ensure that she is not being appropriat [place] treated. Hyperglycemia 94549197 R 73.9 Patient has a history of elevated blood sugar so we will check an A1c. Hyperlipidemia 23366512 E78.5 Continue low-fat/hi gh-fiber diet. Bipolar disorder 3035936 4 F31.9 Patient sees [facility]. The patient takes ziprasidon e and has been stable for 10 years. Morbid obesity 694473684 E66.01 Continue to try to work on diet and work on weight loss. Health Concerns Section Related Observation LastModified by Organization Detai ls LastModified Time None Recorded Concern Status LastModified by Organization Details LastModified Time None Recorded Advance Directives Directive None Recorded Payers Insurance Date Sequence Insurance Name Policy Number Policy Garcia Covered Member ID Garcia Member ID Guarantor Name 07/11/2025 [place] [facility] (INSTITUTION[facility] L) Suetharocio Grnaado Hickam [id number] Timrocio Granado Hickam 07/18/2025 1 [facility] (MEDICARE REPLACEMENT/A DVANTAGE - PPO) Timrocio Emy Hickam [id number] Timrocio Granado Hickam 07/11/2025 2 [place] Birgit Granado Hickam [id number] Mirnayely Granado Hickam Notes Date Note Type Note Provider Name and Address Organization Details Recorded Time 4 text/htm l Upper Respiratory SymptomsReported by PatientUpper Respiratory SymptomsFor quality, patient reportscongestedandnasal discharge. For context, patient reportssick contact. For associated symptoms, patient reportsgreen sputum,headache, andmalaise. For location, patient reportshead,nasal,ears, andface. For duration, patient reportssymptoms lasting less than 2 weeks.ROS as noted in the HPI Patient is a 63 year old female who presents to the walk in clinic today for nasal drainage, cough, and sinus pressure. Patient reports she was sick 2 weeks ago and got better for a few days and then symptoms returned. Patient states she has been using flonase with minimal relief. GISELE MARIE-[address] [place], [address], [facility] 01/07/2024 15:12:10 4 text/htm l HypothyroidReported by PatientHPIFor duration, patient reportspresent for 6-12 months. For associated symptoms, patient reportsno lightheadedness,no fatigue,no chest pain, andno palpitations. For treatment, patient reportstaking medication as prescribed.ROS as noted in the [facility] Bandar D eLa Torre DO [address] [place] [address], [phone], [facility]ionelLL[facility]elC. 04/07/2024 11:22:04 4 text/htm l HypothyroidReported by PatientHPIFor duration, patient reportspresent for 6-12 months. For associated symptoms, patient reportsno lightheadedness,no fatigue,no chest pain, andno palpitations. For treatment, patient reportstaking medication as prescribed.ROS as noted in the [facility] Bandar De La Torre DO [address] [place] [address], [phone], [facility] LL[facility]elLL[facility]elC. 10/11/2024 11:12:48 5 text/htm l Annual WellnessReported by Patient Medicare Annual Wellness VisitReported by Patient This is a 64-year-old female that comes in today to establish care. Was previously seeing Dr. De La Torre. Patient is concerned about her thyroid function as she has been gaining weight. Started happening after her levothyroxine was decreased. Patient reports that she has been having increasing bilateral foot pain. Patient has a history of clubfoot and flatfeet. The patient has used custom orthotics in the past and she is due for new ones but unfortunately she has not been able to get new ones due to cost. Yifan Nair MD [address] [place] [address], [phone], [facility] LL[facility]elLL[facility]elC. 01/13/2025 16:22:51 5 text/htm l HyperlipidemiaReported by PatientHPIFor duration, patient reportschronic. For control, patient reportsusually well controlled. For adherence to treatment plan, patient reportsfollows recommended dietandtakes medications as prescribed. HypothyroidReported by PatientHPIFor associated symptoms, patient reportsweight gain 7lbs.but reportsno weaknessandno lightheadedness. This is a 64-year-old female comes in today for 6-month checkup. Patient denies any significant changes in her chronic medical issues. Patient states that she is tolerating her medications without side effects. Yifan Nair MD [address] [place] [address], [phone], [facility], [place]sabel 07/16/2025 13:32:17 OBGyn Episode No OBEpisode recorded.
--- OUTSIDE RECORDS SUMMARY | 2025-10-28 20:19 | XMS_ITS | Encounter Summary ---
Author Organization [facility] Address [address] [place] [address] Care Team Providers Care Mild Disabilities Teacher Name Role Phone Bandar De La Torre DO Primary Care Provide r Reason for Referral * Outpatient Services (Routine) - Closed Specialty Diagnoses / Procedures Referred By Jamaal ruiz Referred To Contact Radiology Diagnoses Inconclusive mammogram Procedures MAMMO DIAG UNI RIGHT 3D BHAKTI W OR WO CAD MAMMO DIAGNOSTIC UNI RIGHT W OR WO CAD MAMMO DIAG UNI RIGHT 3D BHAKTI W OR WO CAD Bandar De La Torre DO [address] [address] Phone: tel: fax: [facility] [address] [address] Phone: tel: fax: Referral ID Status Reason Start Date Expiration Date Visits Requested Visits Authorized [id number] Closed Performing Department To Schedule (SGF) 08/28/2017 09/28/2018 1 1 Encounter Details Date Type Department Care Team (Late st Contact Info) Description 09/22/2017 Ancillary Orders [facility] [address] [address] Bandar De La Torre DO [address] [facility] 1 [place] [address] Inconclusive mammogram Social History Tobacco Use Types Packs/Day Years Used Date Smoking Tobacco: Former Alcohol Use Standard Drinks/Week Comments No 0 (1 standard drink = 0.6 oz pur e alcohol) Comments Unknown Sex and Gender Information Value Date Recorded Sex Assigned at Not on file Legal Sex Female 9:07 AM PAINTER SET Gender Identity Not on file Sexual Orientation Not on file Occupation Industry Job Start Date Job End Date Not on file Not on file Not on file Not on file documented as of this encounter Plan of Treatment Not on file documented as of this encounter Results * (ABNORMAL) MAMMO DIAG UNI RIGHT 3D BHAKTI W OR WO CAD (09/22/2017 2:18 PM PAINTER SET) Anatomical Region Laterality Modality Breast Right Mammography 09/22/2017 2:18 PM PAINTER SET Impressions 09/23/2017 9:14 AM PAINTER SET : I would recommend follow-up right diagnostic mammogram in 6 months time. Patient received a result/recommendation letter. [id number] Narrative 09/23/2017 9:14 AM PAINTER SET RIGHT ADDITIONAL VIEWS AND ULTRASOUND 09/22/2017 The [...] indicated her understanding. The prior exam from [facility] dated 10/12/2012 is not available today for comparison. The patient was given a verbal and written report. Bandar De La Torre DO MAMMO ORDERPINEDA granado Result documented in this encounter Visit Diagnoses Diagnosis Inconclusive mammogram Inconclusive mammogram documented in this encounter Care Teams Mild Disabilities Teacher Relationship Specialty Start Date End Date Bandar De La Torre DO [address] [address] PCP - General Internal Medicine 09/03/17 documented as of this encounter
--- OUTSIDE RECORDS SUMMARY | 2025-10-28 20:19 | XMS_ITS | Encounter Summary ---
Author Organization [facility] Address [address] [place] [address] Care Team Providers Care Metal Can Inspector Name Role Phone Bandar De La Torre DO Primary Care Provide r Reason for Referral * Outpatient Services (Routine) - Closed Specialty Diagnoses / Procedures Referred By Jamaal ruiz Referred To Contact Radiology Diagnoses Encounter for screening mammogram for malignant neoplasm of breast Procedures MAMMO SCRN BILAT 3D BHAKTI W OR WO CAD MAMMO SCREEN BILAT W OR WO CAD Bandar De La Torre DO [address] [facility] 1 [place] [address] Phone: tel: fax: [facility] [address] [facility] [address] [place] [address] Phone: tel: fax: Referral ID Status Reason Start Date Expiration Date Visits Re quested Visits Authorized [id number] Closed 06/25/2017 07/26/2018 1 1 Encounter Details Date Type Department Care Team (Late st Contact Info) Description 06/25/2017 Ancillary Orders [facility] Pre-Registration [place] CALL TO MAKE APPOINTMENT ONLY [address] [place] [address] Bandar De La Torre DO [address] [facility] 1 [place] [address] Encounter for screening mammogram for malignant neoplasm of breast Social History Tobacco Use Types Packs/Day Years Used Date Smoking Tobacco: Former Alcohol Use Standard Drinks/Week Comments No 0 (1 standard drink = 0.6 oz pur e alcohol) Comments Unknown Sex and Gender Information Value Date Recorded Sex Assigned at Not on file Legal Sex Female 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 I would also recommend 3-D craniocaudal and 3-D MLO spot tomosynthesis views. [id number] Narrative 08/27/2017 12:22 PM CDT 3D MLO and CC digital tomosynthesis images were acquired and synthesized 2D images (C view) were generated. This digital mammogram was also analyzed by the Computer Aided Detection System (CAD). Bilateral exam was done. The breasts are mostly fatty replaced. Comparison is made with prior exams of 08/14/2016, 06/29/2015, 05/25/2014, 05/24/2013, 10/12/2012, 03/11/2012, and 05/29/2010. No suspicious calcifications are seen. No change is seen on the left. On the right, there is a small 4 mm nodule laterally between the 7 and 9:00 position which appears new and this will require further evaluation. No change is seen on the left. Bandar De La Torre DO MAMMO ORDERABLES Martita l Result documented in this encounter Visit Diagnoses Diagnosis Encounter for screening mammogram for malignant neoplasm of breast Other screening mammogram Encounter for screening mammogram for malignant neoplasm of breast Other screening mammogram documented in this encounter Care Teams Metal Can Inspector Relationship Specialty Start Date End Date Bandar De La Torre DO [address] [facility] 1 [place] [address] PCP - General Internal Medicine 09/03/17 documented as of this encounter
--- OUTSIDE RECORDS SUMMARY | 2025-10-28 20:19 | XMS_ITS | Clinical Summary ---
Author Organization [facility] Address [address] [place] [address] Care Team Providers Care Deck Specialist Name Role Phone Bandar De La Torre DO Primary Care Provide r Allergies Active Allergy Reactions Criticality Noted Date Comments Egg Nausea and Vomiting Low 05/18/2015 Latex Hives High 05/18/2015 Levofloxacin Other (See Comments) 05/18/2015 Jaw pain Medications naproxen (NAPROSYN) 500 mg tablet Take 500 mg by mouth 2 times daily with meals. Active cyclobenzaprine (FLEXERIL) 10 mg tablet Take 10 mg by mouth every 8 hours. Active lovastatin (MEVACOR) 20 mg tablet Take 20 mg by mouth daily with supper. Active traZODone (DESYREL) 100 mg tablet Take 100 mg by mouth daily at bedtime. Active levothyroxine 150 mcg tablet Take 150 mcg by mouth daily disulfurizer tender. Active temazepam (RESTORIL) 15 mg capsule Take 15 mg by mouth nightly as needed for Insomnia. Active lamoTRIgine (LAMICTAL) 150 mg tablet Take 150 mg by mouth daily. Active calcium citrate-vitamin d3 (CITRACAL D) 315-200 mg-unit Tablet Take by mouth daily. Active multivitamin (DAILY-TRENTON) tablet Take 1 Tab by mouth daily. Active cholecalciferol , Vitamin D3, 2,000 unit Tablet Take by mouth. 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 Gender Identity Not on file Sexual Orientation Not on file Occupation Industry Job Start Date Job End Date Not on file Not on file Not on file Not on file Last Filed Vital Signs Vital Sign Reading Time Taken Comments Blood Pressure 130/84 11/21/2015 9:54 AM RECEPTIONIST CLERK Pulse 75 11/21/2015 9:54 AM RECEPTIONIST CLERK Temperature - - Respiratory Rate - - Oxygen Saturation - - Inhaled Oxygen Concentration - - Weight 112.5 kg (248 lb) 11/21/2015 9:54 AM RECEPTIONIST CLERK Height 170.2 cm (5' 7 ) 11/21/2015 9:54 AM RECEPTIONIST CLERK Body Mass Index 38.84 11/21/2015 9:54 AM RECEPTIONIST CLERK Plan of Treatment Health Maintenance Due Date [...] Anatomical Region Laterality Modality Breast Bilateral Mammography 03/02/2019 11:5 1 AM CDT Narrative 03/02/2019 1:58 PM CDT MAMMO DIAG [...] RECOMMENDATIONS: Bilateral diagnostic mammogram in one year. [id number] Procedure Note Cordell Navas MD - 03/02/2019 MAMMO DIAG BILAT 3D BHAKTI W OR [...] RECOMMENDATIONS: Bilateral diagnostic mammogram in one year. [id number] Bandar De La Torre DO MAMMO ORDERABLES Martita l Result from Last 3 Months or Most Recently Relevant to Health Maintenance Insurance MEDICAID [facility] DUAL COMPLETE [facility] PPO D-SNP Care Teams Deck Specialist Relationship Specialty Start Date End Date Bandar De La Torre DO [address] [facility] [address] [place] [address] PCP - General Internal Medicine 09/03/17
--- OUTSIDE RECORDS SUMMARY | 2025-10-28 20:19 | XMS_ITS | Encounter Summary ---
Author Organization [facility] Address [address] [place] [address] Care Team Providers Care Financial Planning Consultant Name Role Phone Bandar De La Torre DO Primary Care Provide r Reason for Referral * Radiology Services (Routine) - Closed Specialty Diagnoses / Procedures Referred By Jamaal ruiz Referred To Contact Radiology Diagnoses Abnormal mammogram Procedures MAMMO DIAG BILAT 3D BHAKTI W OR WO CAD CHG DIAGNOSTIC MAMMOGRAPHY COMPUTER-AIDED DETCJ BI CHG DIGITAL BREAST TOMOSYNTHESIS BILATERAL Bandar De La Torre DO [address] [facility] 1 [place] [address] Phone: tel: fax: [facility] [address] [address] Phone: tel: fax: Referral ID Status Reason Start Date Expiration Date V isits Requested Visits Authorized [id number] Closed SGF [facility] TO SCHEDULE (SGF) 02/10/2019 03/12/2020 1 1 Encounter Details Date Type Department Care Team (Late st Contact Info) Description 02/10/2019 Ancillary Orders [facility] Pre-Registration [place] CALL TO MAKE APPOINTMENT ONLY [address] [place] [address] Bandar De La Torre DO [address] [facility] 1 [place] [address] Abnormal mammogram Social History Tobacco Use Types Packs/Day Years Used Date Smoking Tobacco: Former Alcohol Use Standard Drinks/Week Comments No 0 (1 standard drink = 0.6 oz pur e alcohol) Comments Unknown Sex and Gender Information Value Date Recorded Sex Assigned at Not on file 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 [id number] Procedure Note Cordell Navas MD - 03/02/2019 [...] RECOMMENDATIONS: Bilateral diagnostic mammogram in one year. [id number] Bandar De La Torre DO MAMMO ORDERABLES Martita l Result documented in this encounter Visit Diagnoses Diagnosis Abnormal mammogram Abnormal mammogram, unspecified Abnormal mammogram Abnormal mammogram, unspecified documented in this encounter Care Teams Financial Planning Consultant Relationship Specialty Start Date End Date Bandar De La Torre DO [address] [address] PCP - General Internal Medicine 09/03/17 documented as of this encounter
--- OUTSIDE RECORDS SUMMARY | 2025-10-28 20:19 | XMS_ITS | Encounter Summary ---
Author Organization [facility] Address [address] [place] [address] Care Team Providers Care Primer Inserting Machine Operator Name Role Phone Bandar De La Torre DO Primary Care Provide r Reason for Referral * Outpatient Services (Routine) - Closed Specialty Diagnoses / Procedures Referred By Jamaal ruiz Referred To Contact Radiology Diagnoses Abnormal mammogram Procedures MAMMO DIAG UNI RIGHT 3D BHAKTI W OR WO CAD MAMMO DIAGNOSTIC UNI RIGHT W OR WO CAD Bandar De La Torre DO [address] [facility] 1 [place] [address] Phone: tel: fax: [facility] [address] [facility] [address] [place] [address] Phone: tel: fax: Referral ID Status Reason Start Date Expiration Date V isits Requested Visits Authorized [id number] Closed F MC TO SCHEDULE (SGF) 03/12/2018 04/12/2019 1 1 Encounter Details Date Type Department Care Team (Late st Contact Info) Description 03/12/2018 Ancillary Orders [facility] Pre-Registration [place] CALL TO MAKE APPOINTMENT ONLY [address] [place] [address] Bandar De La Torre DO [address] [facility] 1 [place] [address] Abnormal mammogram Social History Tobacco Use Types Packs/Day Years Used Date Smoking Tobacco: Former Alcohol Use Standard Drinks/Week Comments No 0 (1 standard drink = 0.6 oz pur e alcohol) Comments Unknown Sex and Gender Information Value Date Recorded Sex Assigned at Not on file 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 I would recommend bilateral mammogram in 6 months, with the plan that if there has been no change, we can resume annual mammograms at that time. The patient was given a result/recommendation letter. [id number] Narrative 03/27/2018 7:07 AM CDT RIGHT DIAGNOSTIC MAMMOGRAM 3-D BHAKTI WITH OR WITHOUT CAD: 3-D bhakti synthesis CC and MLO imaging is presented, as a six-month follow-up for a tiny low-density nodular area in the midportion of the breast slightly toward 8 to 9 o'clock position. This was thought to be very likely benign and follow-up is recommended. I see no significant change on mammogram. The tiny density is again noted and appears stable, with benign features. This digital mammogram was also analyzed by the Computer Aided Detection System (CAD), [employer] ImageChecker, Version 8.3. Bandar De La Torre DO MAMMO ORDERABLES Martita l Result documented in this encounter Visit Diagnoses Diagnosis Abnormal mammogram Abnormal mammogram, unspecified Abnormal mammogram Abnormal mammogram, unspecified documented in this encounter Care Teams Primer Inserting Machine Operator Relationship Specialty Start Date End Date Bandar De La Torre DO [address] [phone] PCP - General Internal Medicine 09/03/17 documented as of this encounter
--- OUTSIDE RECORDS SUMMARY | 2025-10-28 20:19 | XMS_ITS | Encounter Summary ---
Author Organization [facility] Address [address] [place] [address] Care Team Providers Care Swimming Pool Plasterer Helper Name Role Phone Bandar De La Torre DO Primary Care Provide r Reason for Referral * Outpatient Services (Routine) - Closed Specialty Diagnoses / Procedures Referred By Jamaal ruiz Referred To Contact Diagnoses Abnormal mammogram, unspecified Procedures MAMMO DIGITAL DIAG BILDora Vincent MD [address] [place] [address] Phone: tel: fax: [facility] Pre-Registration [place] CALL TO MAKE APPOINTMENT ONLY [address] [place] [address] Phone: tel: fax: Referral ID Status Reason Start Date Expiration Date V isits Requested Visits Authorized [id number] Closed F MC TO SCHEDULE (SGF) 04/30/2013 05/31/2014 1 1 Encounter Details Date Type Department Care Team (Late st Contact Info) Description 04/30/2013 Ancillary Orders [facility] CALL TO MAKE APPOINTMENT ONLY [address] [place] [address] Dora Lagunas MD [address] [place] [address] Abnormal mammogram, unspecified (Primary Dx) Social History Tobacco Use Types Packs/Day Years Used Date Smoking Tobacco: Never Assessed Comments Unknown Sex and Gender Information Value Date Recorded Sex Assigned at Not on file 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 The calcifications continue to favor a probably benign process. The remainder of the findings bilaterally appear to be stable and unremarkable. Patient is denying any complaints. I would return the patient to routine yearly screening exams. Patient received the result and recommendation letter. MARISSA/skylar - uploaded from [employer] Narrative 05/24/2013 7:03 PM CDT REASON FOR EXAM: Patient is returning for bilateral diagnostic mammogram as we were recommending observation of calcifications on the left. IMAGING PERFORMED: Standard bilateral four view mammogram plus a left lateral projection and magnification views on the left in the CC and lateral projection. COMPARISON(S): 04/18/2008, 05/29/2010, 03/11/2012, 04/01/2012, 10/12/2012, 11/19/2012. TISSUE COMPOSITION: Fatty. FAMILY HX.-BREAST Ca: Negative. MAMMOGRAPHIC FINDINGS: RIGHT BREAST: Stable. LEFT BREAST: The patient has had a few punctate calcifications in the upper outer quadrant for several years. A few additional calcifications were forming posterior to that original cluster. At the time of today's exam that cluster has become more coarse, larger and appears to be coalescing favoring a probably benign process. This digital mammogram was also analyzed by the Computer Aided Detection System (CAD), [employer] ImageChecker, Version 8.3. Procedure Note Hilda Rosales MD - 05/24/2013 REASON FOR EXAM: Patient is returning for bilateral diagnostic mammogram as we were recommending observation of calcifications on the left. IMAGING PERFORMED: Standard bilateral four view mammogram plus a left lateral projection and magnification views on the left in the CC and lateral projection. COMPARISON(S): 04/18/2008, 05/29/2010, 03/11/2012, 04/01/2012, 10/12/2012, 11/19/2012. TISSUE COMPOSITION: Fatty. FAMILY HX.-BREAST Ca: Negative. MAMMOGRAPHIC FINDINGS: RIGHT BREAST: Stable. LEFT BREAST: The patient has had a few punctate calcifications in the upper outer quadrant for several years. A few additional calcifications were forming posterior to that original cluster. At the time of today's exam that cluster has become more coarse, larger and appears to be coalescing favoring a probably benign process. This digital mammogram was also analyzed by the Computer Aided Detection System (CAD), [employer] ImageChecker, Version 8.3. IMPRESSION IMPRESSION: Patient returned for her second six-month followup on the left, yearly exam on the right. The calcifications continue to favor a probably benign process. The remainder of the findings bilaterally appear to be stable and unremarkable. Patient is denying any complaints. I would return the patient to routine yearly screening exams. Patient received the result and recommendation letter. KG/skylar - uploaded from [employer] us Dora Lagunas MD MAMMO ORDERABLES Final Res ult documented in this encounter Visit Diagnoses Diagnosis Abnormal mammogram, unspecified- Primary Abnormal mammogram, unspecified documented in this encounter Care Teams Swimming Pool Plasterer Helper Relationship Specialty Start Date End Date Bandar De La Torre DO [address] [address] PCP - General Internal Medicine 09/03/17 documented as of this encounter
--- NOTE | 2025-10-28 20:43 | XRR_ITS ---
PROCEDURE INFORMATION: Exam: XR Chest Exam date and time: 10/28/2025 8:45 PM Age: 65 years old Clinical indication: Cough and shortness of breath; Cough with SOB; Additional info: Cough, shortness of breath TECHNIQUE: Imaging protocol: Radiologic exam of the chest. [id number] image(s) are submitted. Views: 1 view. COMPARISON: CR XR chest 1V portable [id number] 09/23/2024 1:54 AM FINDINGS: Lungs: Unremarkable. No consolidation. Pleural spaces: Unremarkable. No pleural effusion. No pneumothorax. Heart/Mediastinum: Unremarkable. No cardiomegaly. Bones/joints: Unremarkable. XR/XR chest 1V portable [id number] IMPRESSION: No acute findings.
--- NOTE | 2025-10-28 20:49 | W.ED.URI ---
HPI - URI/Sore Throat General: Chief Complaint: Upper Respiratory Infection Stated Complaint: 102 temp cough L ear pain Time Seen by Provider: 10/28/25 20:43 History of Present Illness: Patient is a 5-year-old female with history of hypothyroid, hyperlipidemia, presents to the emergency room with 1 day of cough, congestion, crackling in her ears, upper respiratory symptoms, rhinorrhea. Context: This started yesterday, . No sick contact. She has subjective fevers and measured fevers of Tmax of 103 ?F. She did take Tylenol at home. She states this feels similar to previously having COVID. Denies production with her cough, however a dry hacking cough. Associated symptoms: Reports chills, ear or mastoid pain, fever(s) and nasal congestion; Deny abdominal pain, chest pain, epistaxis, nausea, sinus pain or vomiting Related Data Home Medications ?Medication ?Instructions ?Recorded ?Confirmed atorvastatin 40 mg tablet 40 mg PO DAILY 11/16/19 10/14/25 cholecalciferol (vitamin D3) 50 100 mcg PO DAILY 02/13/23 10/14/25 mcg (2,000 unit) capsule levothyroxine 150 mcg tablet 137 mcg PO DAILY 09/17/24 10/14/25 (Synthroid) Previous Rx's ?Medication ?Instructions ?Recorded Custom Sole Supports #1 ea 01/07/23 Repair Top Coat of Orthotic #1 ea 01/07/23 Inserts Bilaterally custom insoles #1 ea 12/09/24 trazodone 100 mg tablet 100 mg PO .QHS PRN insomnia #90 05/10/25 tabs ziprasidone HCl 80 mg capsule 80 mg PO BID #180 caps 05/10/25 (Geodon) doxycycline hyclate 100 mg capsule 100 mg PO BID 10 days #20 caps 10/28/25 methylprednisolone 4 mg tablets in See Rx Instructions PO .COMPLEX 10/28/25 a dose pack (Medrol (Jose)) #21 ea nirmatrelvir 300 mg (150 mg See Rx Instructions PO .COMPLEX 10/28/25 x2)-ritonavir 100 mg tablet,dose #30 ea pack (Paxlovid) Allergies Allergy/AdvReac Type Severity Reaction Status Date / Time atorvastatin (From Lipitor) Allergy unknown Verified 10/14/25 06:09 chlorpheniramine Allergy Unknown Verified 10/14/25 06:09 egg Allergy Unknown Verified 10/14/25 06:09 Influenza Virus Vaccines Allergy Unknown Verified 10/14/25 06:09 latex Allergy Unknown Verified 10/14/25 06:09 levofloxacin (From Levaquin) Allergy unknown Verified 10/14/25 06:09 metoprolol Allergy unknown Verified 10/14/25 06:09 potato Allergy Unknown Verified 10/14/25 06:09 pseudoephedrine Allergy unknown Verified 10/14/25 06:09 radish Allergy Unknown Verified 10/14/25 06:09 red dye Allergy unknown Verified 10/14/25 06:09 Sulfa (Sulfonamide Allergy Unknown Verified 10/14/25 06:09 Antibiotics) later with the powder Allergy Severe Rash Uncoded 10/14/25 06:09 Review of Systems General: Reports: 10 or more systems reviewed and unremarkable except in HPI and below Const: Reports: fever(s), chills, body aches and fatigue Eyes: Denies: change in vision or blurry vision ENMT: Reports: ear or mastoid pain, change in hearing, tinnitus, nasal discharge, nasal congestion and post nasal drip; Denies: throat pain, dry mouth, ear discharge, nasal obstruction, epistaxis or sinus pain Card: Denies: chest pain, palpitations or dyspnea on exertion Resp: Reports: dyspnea, non-productive cough and wheezing; Denies: productive cough GI: Denies: abdominal pain, nausea or vomiting Skin/Breast: Denies: changes in skin color or dry skin Neuro: Denies: numbness in extremities, weakness in extremities or sensory changes Psych: Denies: anxiety Roel/Lymph: Denies: easy bruising or easy bleeding [facility] PFSH: Medical History (Updated 10/28/25 @ 21:55 by KATELIN Knott) Psychiatric care Bipolar disorder, in full remission, most recent episode manic Social History Smoking and tobacco/nicotine status: unknown if used tobacco/nicotine Quit status (tobacco/nicotine): has quit using Year quit tobacco: 1984 Second hand smoke exposure: No Physical Exam Const: COMMON NORMALS: no acute distress, average body habitus, patient oriented x3, no limitations, healthy appearing, alert and well nourished HENMT: TYMPANIC MEMBRANE: TM abnormal TM laterality: bilateral dull, wth effusion, erythematous and with loss of landmarks MOUTH: Normal oral and palatal mucosa present, lip normal and tongue normal Neck/C-Spine: COMMON NORMALS: full ROM, no lymphadenopathy, supple and no meningeal signs Lymph: LYMPHATIC: no lymphadenopathy noted Chest: COMMONS NORMALS: normal inspection of the chest and normal palpation of entire chest wall Resp: COMMON NORMALS: normal respiratory effort and No retractions; negative for No use of accessory muscles EFFORT & INSPECTION: No respiratory distress and No retractions AUSCULTATION: wheezes scattered wheezes Cardio: COMMON NORMALS: regular rate and regular rhythm RATE: regular rate RHYTHM: regular rhythm GI: COMMON NORMALS: Normal to inspection, nondistended, normoactive bowel sounds present, Soft to palpation, non-tender and No hepatosplenomegaly present PALPATION: Yes Soft to palpation and Yes No hepatosplenomegaly present : COMMON NORMALS: Yes no CVA tenderness BLADDER/KIDNEY EXAM: Yes no CVA tenderness Back/Pelvis: COMMON NORMALS: no CVA tenderness and thoracic and lumbar spine normal to inspection Extremity: COMMON NORMALS: normal to inspection, full ROM and capillary refill normal Neuro: COMMON NORMALS: patient oriented x3 SENSORIUM/ORIENTATION: Yes alert MENINGEAL SIGNS: Yes no meningeal signs Course Vital Signs: Vital signs: Vital Signs Temperature 99.0 F 10/28/25 20:11 Pulse Rate 79 10/28/25 22:14 Respiratory Rate 16 10/28/25 22:14 Blood Pressure 150/106 10/28/25 22:14 Pulse Oximetry 93 10/28/25 22:14 Oxygen Delivery Me thod Room Air 10/28/25 20:11 MDM - URI/Sore Throat Medical Decision Making Patient is a 5-year-old female that presents to the emergency room with cough, ear crackling, and fever x 1 day. No known sick exposure. She is exposed to the public. COVID was positive. Symptoms were consistent with previous COVID. Paxlovid was ordered since patient was in the window. Given her otitis media, she was also prescribed doxycycline to cover both her ears, and secondary infection as well as Medrol Dosepak. This was explained to patient. She states understanding. Discussed isolation with patient. She states understanding Lab Data Radiology Impressions Chest X-Ray 10/28/25 20:43 IMPRESSION: No acute findings. Laboratory Results Influenza A (PCR) Negative (Negative) 10/28/25 20:50 Influenza Type B (PCR) Negative (Negative) 10/28/25 20:50 RSV (PCR) Negative (Negative) 10/28/25 20:50 SARS-CoV-2 (PCR) Positive (Negative) A 10/28/25 20:50 All radiology interpretation(s) finalized by discharge Discharge Plan Discharge Patient Disposition: Home Clinical Impression: COVID-19, Bilateral acute otitis media Condition: Stable Prescriptions: New doxycycline hyclate 100 mg capsule 100 mg PO BID 10 Days Qty: 20 0RF methylprednisolone [Medrol (Jose)] 4 mg tablets,dose pack See Rx Instructions PO .COMPLEX Qty: 21 0RF Rx Instructions: for 6 days Paxlovid 300 mg (150 mg x 2)-100 mg tablets,dose pack See Rx Instructions .ROUTE .COMPLEX Qty: 30 0RF Rx Instructions: take TWO 150 mg tablets of nirmatrelvir with ONE 100 mg tablet of ritonavir twice daily for 5 days No Action atorvastatin 40 mg tablet 40 mg PO DAILY levothyroxine [Synthroid] 150 mcg tablet 137 mcg PO DAILY cholecalciferol (vitamin D3) 50 mcg (2,000 unit) capsule 100 mcg PO DAILY (DME) Custom Sole Supports See Rx Instructions .Route .MEDSUPPLY Qty: 1 0RF Rx Instructions: Please Prior Auth (DME) Repair Top Coat of Orthotic Inserts Bilaterally See Rx Instructions .Route .MEDSUPPLY Qty: 1 0RF Rx Instructions: As directed [employer] (DME) custom insoles See Rx Instructions .Route .MEDSUPPLY Qty: 1 0RF Rx Instructions: As directed to the jacoby francis ziprasidone HCl [Geodon] 80 mg capsule 80 mg PO BID Qty: 180 2RF Rx Instructions: Take one capsule twice per day with food (meal/snack) trazodone 100 mg tablet 100 mg PO .QHS PRN (Reason: insomnia) Qty: 90 2RF Rx Instructions: Take one tablet at bedtime as needed for sleep Discharge Orders: Discharge ED (Routine); Ordered 10/28/25 Ordered By: Hananh Tineo Referrals: Yifan Nair MD [Primary Care Provider, Family Practice] Discharge Diet: Usual diet Discharge Activity: Resume usual activity Patient Instructions: COVID-19 (Coronavirus Disease 2019) (ED), Patient Portal & Odette Instructions Activity Restrictions/Additional Instructions: - Do not leave your home until 11/02 - Please use secure isolation methods to obtain your medications. - It is important to keep a mask on when leaving the hospital, until you are in your home. Those exposed to your illness can cause such as people with cancer, and elderly people. If you go to the pharmacy, use the drive-through, and utilize a mask - Stay on your home until 11/02 as noted - Paxlovid is at the pharmacy. Some insurances do not cover this. If your insurance will not cover it, they will not except a prior authorization. This is up to you if you want to pay for it as karimi, if your insurance does not cover it. It has been my experience that it is as much as $1000 -Medrol Dosepak and doxycycline are at the pharmacy. Use as directed - Do not return to the hospital or any facility unless you are having shortness of breath, where you cannot catch her breath, and your oxygen saturation is less than 88% Thank you for choosing [facility] for your healthcare needs today. You have been screened and evaluated and felt safe for discharge. Health conditions do change or evolve sometimes and as such it is important that you follow up with your Primary Doctor to be re checked, 3-5 days is a general good time frame for follow up. You are always welcome to return to the ED for re assessment if your symptoms are worsening or you have new concerns Stand Alone Forms: Work/School Release Print Language: Namibian Coding Level of Care Code ED Anatomy And Physiology Instructor for Jen Feliciano
[2025-10-28 21:37] LABS: Respiratory Syncytial Virus Ce NEGATIVE (Negative)
[2025-10-28 21:49] LABS: SARS-CoV-2 PCR Positive (Negative)
[2025-10-28 22:14] VITALS: BP 150/106; PULSE 79; RESP 16; O2SAT 93
== END 2025-10-28 22:19 | disposition home or self-care (01) ==
PROVIDERS: Emergency Provider Physician Assistant; PCP Family Medicine
DX: U07.1 COVID-19 (principal); H66.93 Otitis media, unspecified, bilateral; Z11.52 Encounter for screening for COVID-19; Z87.891 Personal history of nicotine dependence; E78.5 Hyperlipidemia, unspecified
CPT/HCPCS: 71045; 87637; 96372; 99284; J1100; J9999